=== PATIENT | male | born 1950 | race Caucasian/White ===

== ENCOUNTER 2019-02-19 10:45 | Emergency (ER) | payer MEDICARE ==
--- NOTE | 2019-02-19 11:16 | EDM.PDOC ---
ED HPI GENERAL MEDICAL PROBLEM - General Chief Complaint: Genitourinary Problem Stated Complaint: TROUBLE URINATING Time Seen by Provider: 02/19/19 11:11 Source of Information: Reports: Patient History Limitations: Reports: No Limitations - History of Present Illness INITIAL COMMENTS - FREE TEXT/NARRATIVE: HISTORY AND PHYSICAL: History of present illness: Patient is a 68-year-old male presents to the ED with concern of inability to urinate. Patient has a history of BPH and had a had a catheter in for the past month. He states he was concerned about having it in too long so he had it taken out yesterday at Dr. Tapia's office. He was told he needed to be seen to have it put back in if he has difficulty urinating. He called both Dr. Briones and Dr. Tapia's office this morning but was unable to be seen and was told to come to the ED. He states since he had it taken out yesterday afternoon he has only "dribble" some early this morning. He states he has the urge to urinate but is unable to and he has some lower abdominal discomfort due to needing to urinate. He denies fevers, chills, nausea, vomiting, back pain. Review of systems: As per history of present illness and below otherwise all systems reviewed and negative. Past medical history: As per history of present illness and as reviewed below otherwise noncontributory. Surgical history: As per history of present illness and as reviewed below otherwise noncontributory. Social history: No reported history of drug or alcohol abuse. Family history: As per history of present illness and as reviewed below otherwise noncontributory. Physical exam: General: Patient sitting comfortably in no acute distress and nontoxic appearing HEENT: Atraumatic, normocephalic, pupils reactive, negative for conjunctival pallor or scleral icterus, mucous membranes moist, throat clear, neck supple, nontender, trachea midline. No meningeal signs. Lungs: Clear to auscultation, breath sounds equal bilaterally, chest nontender. Heart: S1S2, regular, negative for clicks, rubs, or overt murmur. Abdomen: Soft, nondistended, nontender. Negative for masses or hepatosplenomegaly. Negative for costovertebral tenderness. No rigidity, rebound , guarding. Pelvis: Stable nontender. Genitourinary: Glans penis is slightly swollen and erythematous. Rectal: Deferred. Extremities: Atraumatic, negative for cords or calf pain. Neurovascular unremarkable. Neuro: Awake, alert, oriented. Cranial nerves II through XII unremarkable. Cerebellum unremarkable. Motor and sensory unremarkable throughout. Exam nonfocal. Notes: Bishop catheter placed by nursing staff. Nurse asked me to evaluate the penis secondary to irritation. Patient's glans penis appears slightly swollen and erythematous. He states it has been like this for some time and his PCP had told him to use bactroban which he has not been using. He states he does not bathe regularly and uses alcohol swabs to clean around the catheter. Patient was advised to discontinue alcohol swabs and to gently clean with warm wet washcloth and apply bactroban as instructed. Diagnostics: UA Declined labs Therapeutics: Bishop catheter Prescriptions: Impression: Urinary retention, history of BPH, UTI Definitive disposition and diagnosis as appropriate pending reevaluation and review of above. bladder Pain Score (Numeric/FACES): 10 - Related Data Allergies Allergy/AdvReac Type Severity Reaction Status Date / Time No Known Allergies Allergy Verified 02/19/19 10:58 Home Meds: Home Meds Codeine Sulfate 30 mg PO QID 02/19/19 [History] Diazepam [Valium] 5 mg PO DAILY 02/19/19 [History] Sulfamethoxazole/Trimethoprim [Bactrim Ds Tablet] 1 each PO BID 7 Days #14 tablet 02/19/19 [Rx] Tamsulosin HCl [Flomax] 1 tab DAILY 02/19/19 [History] Past Medical History Gastrointestinal History: Reports: Inflammatory Bowel Disease Genitourinary History: Reports: BPH, Retention, Urinary Psychiatric History: Reports: Anxiety Hematologic History: Reports: B12 Deficiency - Past Surgical History HEENT Surgical History: Reports: Cataract Surgery, Tonsillectomy GI Surgical History: Reports: Colonoscopy, Small Bowel, Other (See Below) Other GI Surgeries/Procedures: Crohns Disease Social & Family History - Family History Family Medical History: Noncontributory - Tobacco Use Smoking Status *Q: Never Smoker - Recreational Drug Use Recreational Drug Use: No ED ROS GENERAL - Review of Systems Review Of Systems: Comprehensive ROS is negative, except as noted in HPI. ED EXAM, RENAL/ - Physical Exam Exam: See Below (see dictation) Course - Vital Signs Last Recorded V/S: Last Vital Signs Temp 96.5 F 02/19/19 10:55 Pulse 127 H 02/19/19 10:55 Resp 20 02/19/19 10:55 BP 161/111 H 02/19/19 10:55 Pulse Ox 100 02/19/19 10:55 - Orders/Labs/Meds Orders: Active Orders 24 hr Category Date Time Status Bishop Catheter Insertion [Insert Urinary Catheter] [OM. Care 02/19/19 12:00 Ordered PC] Q24H Urinary Catheter Assessment [RC] ASDIRECTED Care 02/19/19 11:52 Active CULTURE URINE [RM] Stat Lab 02/19/19 11:15 Received Labs: Laboratory Tests 02/19/19 Range/Units 11:15 Urine Color YELLOW Urine Appearance CLOUDY Urine pH 6.5 (5.0-8.0) Ur Specific Dale 1.020 (1.001-1.035) Urine Protein 30 H (NEGATIVE) mg/dL Urine Glucose (UA) NEGATIVE (NEGATIVE) mg/dL Urine Ketones NEGATIVE (NEGATIVE) mg/dL Urine Occult Blood LARGE H (NEGATIVE) Urine Nitrite NEGATIVE (NEGATIVE) Urine Bilirubin NEGATIVE (NEGATIVE) Urine Urobilinogen 0.2 (<2.0) EU/dL Ur Leukocyte Esterase LARGE H (NEGATIVE) Urine RBC 15-20 (0-2/HPF) Urine WBC TO NUMEROUS TO COUNT H (0-5/HPF) Ur Epithelial Cells NOT SEEN (NONE-FEW) Urine Bacteria 2+ H (NEGATIVE) Departure - Departure Time of Disposition: 11:56 Disposition: Home, Self-Care 01 Condition: Good Clinical Impression: Urinary retention, History of BPH, UTI (urinary tract infection) - Discharge Information Prescriptions: Sulfamethoxazole/Trimethoprim [Bactrim Ds Tablet] 1 each PO BID 7 Days #14 tablet Referrals: Saurabh Tapia MD [Primary Care Provider] - Forms: ED Department Discharge Additional Instructions: The following information is given to patients seen in the emergency department who are being discharged to home. This information is to outline your options for follow-up care. We provide all patients seen in our emergency department with a follow-up referral. The need for follow-up, as well as the timing and circumstances, are variable depending upon the specifics of your emergency department visit. If you don't have a primary care physician on staff, we will provide you with a referral. We always advise you to contact your personal physician following an emergency department visit to inform them of the circumstance of the visit and for follow-up with them and/or the need for any referrals to a consulting specialist. The emergency department will also refer you to a specialist when appropriate. This referral assures that you have the opportunity for follow-up care with a specialist. All of these measure are taken in an effort to provide you with optimal care, which includes your follow-up. Under all circumstances we always encourage you to contact your private physician who remains a resource for coordinating your care. When calling for follow-up care, please make the office aware that this follow-up is from your recent emergency room visit. If for any reason you are refused follow-up, please contact the Emergency Department at and asked to speak to the emergency department charge nurse. Primary [facility] [address] [place] [address] [place] [address] Drink plenty of fluids and take antibiotic as directed. Follow up with primary care provider Return to ED as needed as discussed Sepsis Event Note - Evaluation Sepsis Screening Result: No Definite Risk - Focused Exam Vital Signs: Vital Signs Temp Pulse Resp BP Pulse Ox 02/19/19 10:55 96.5 F 127 H 20 161/111 H 100 Date Exam was Performed: 02/19/19 Time Exam was Performed: 11:56 - My Orders Last 24 Hours: My Active Orders 02/19/19 11:15 CULTURE URINE [RM] Stat 02/19/19 11:52 Urinary Catheter Assessment [RC] ASDIRECTED 02/19/19 12:00 Bishop Catheter Insertion [Insert Urinary Catheter] [OM.PC] Q24H - Assessment/Plan Last 24 Hours: My Active Orders 02/19/19 11:15 CULTURE URINE [RM] Stat 02/19/19 11:52 Urinary Catheter Assessment [RC] ASDIRECTED 02/19/19 12:00 Bishop Catheter Insertion [Insert Urinary Catheter] [OM.PC] Q24H
== END 2019-02-19 12:22 | disposition home or self-care (01) ==
LOC: MW.ED 10:45
DX: N39.0 Urinary tract infection, site not specified (principal); N40.1 Benign prostatic hyperplasia with lower urinary tract symptoms; R33.8 Other retention of urine; F41.9 Anxiety disorder, unspecified; Z79.899 Other long term (current) drug therapy
CPT/HCPCS: 51702; 81001; 87086; 87088; 87186; 99283-25

== ENCOUNTER 2019-03-23 15:18 | Emergency (ER) | payer MEDICARE ==
--- NOTE | 2019-03-23 16:36 | EDM.PDOC ---
ED HPI GENERAL MEDICAL PROBLEM - General Chief Complaint: Genitourinary Problem Stated Complaint: NEEDS CATHETER CHANGED Time Seen by Provider: 03/23/19 16:36 Source of Information: Reports: Patient History Limitations: Reports: No Limitations - History of Present Illness INITIAL COMMENTS - FREE TEXT/NARRATIVE: HISTORY AND PHYSICAL: History of present illness: Patient is a 68-year-old male presents the ED with concern for need of a new catheter. Patient has history of BPH causing obstruction requiring an indwelling catheter. He states that he is supposed to have his catheter changed once a month per his urologist. He states he is due for to be changed today. He has no complaints at this time and denies any trouble with urination , fevers, chills, nausea, vomiting, abdominal pain. Review of systems: As per history of present illness and below otherwise all systems reviewed and negative. Past medical history: As per history of present illness and as reviewed below otherwise noncontributory. Surgical history: As per history of present illness and as reviewed below otherwise noncontributory. Social history: No reported history of drug or alcohol abuse. Family history: As per history of present illness and as reviewed below otherwise noncontributory. Physical exam: General: Patient sitting comfortably in no acute distress and nontoxic appearing HEENT: Atraumatic, normocephalic, pupils reactive, negative for conjunctival pallor or scleral icterus, mucous membranes moist, throat clear, neck supple, nontender, trachea midline. No meningeal signs. Lungs: Clear to auscultation, breath sounds equal bilaterally, chest nontender. Heart: S1S2, regular, negative for clicks, rubs, or overt murmur. Abdomen: Soft, nondistended, nontender. Negative for masses or hepatosplenomegaly. Negative for costovertebral tenderness. No rigidity, rebound , guarding. Pelvis: Stable nontender. Genitourinary: Deferred. Rectal: Deferred. Extremities: Atraumatic, negative for cords or calf pain. Neurovascular unremarkable. Neuro: Awake, alert, oriented. Cranial nerves II through XII unremarkable. Cerebellum unremarkable. Motor and sensory unremarkable throughout. Exam nonfocal. Notes: Catheter changed by nursing staff Diagnostics: None Therapeutics: None Prescriptions: Impression: Need for indwelling catheter Plan: Follow-up with urology Return to ED as needed discussed Definitive disposition and diagnosis as appropriate pending reevaluation and review of above. - Related Data Allergies Allergy/AdvReac Type Severity Reaction Status Date / Time No Known Allergies Allergy Verified 02/19/19 10:58 Home Meds: Home Meds Codeine Sulfate 30 mg PO QID 02/19/19 [History] Diazepam [Valium] 5 mg PO DAILY 02/19/19 [History] Sulfamethoxazole/Trimethoprim [Bactrim Ds Tablet] 1 each PO BID 7 Days #14 tablet 02/19/19 [Rx] Tamsulosin HCl [Flomax] 1 tab DAILY 02/19/19 [History] Past Medical History Gastrointestinal History: Reports: Inflammatory Bowel Disease Genitourinary History: Reports: BPH, Prostate Disorder, Retention, Urinary Psychiatric History: Reports: Anxiety Hematologic History: Reports: B12 Deficiency - Infectious Disease History Infectious Disease History: Reports: Chicken Pox - Past Surgical History HEENT Surgical History: Reports: Cataract Surgery, Tonsillectomy GI Surgical History: Reports: Colonoscopy, Small Bowel, Other (See Below) Other GI Surgeries/Procedures: Crohns Disease Social & Family History - Family History Family Medical History: Noncontributory - Tobacco Use Smoking Status *Q: Never Smoker - Recreational Drug Use Recreational Drug Use: No ED ROS GENERAL - Review of Systems Review Of Systems: Comprehensive ROS is negative, except as noted in HPI. ED EXAM, RENAL/ - Physical Exam Exam: See Below (see dictation) Course - Vital Signs Last Recorded V/S: Last Vital Signs Temp Pulse 110 H 03/23/19 16:13 Resp 20 03/23/19 16:13 BP 157/81 H 03/23/19 16:13 Pulse Ox 98 03/23/19 16:13 Departure - Departure Time of Disposition: 17:17 Disposition: Home, Self-Care 01 Condition: Good Clinical Impression: Indwelling catheter replaced - Discharge Information Referrals: Saurabh Tapia MD [Primary Care Provider] - Forms: ED Department Discharge Additional Instructions: The following information is given to patients seen in the emergency department who are being discharged to home. This information is to outline your options for follow-up care. We provide all patients seen in our emergency department with a follow-up referral. The need for follow-up, as well as the timing and circumstances, are variable depending upon the specifics of your emergency department visit. If you don't have a primary care physician on staff, we will provide you with a referral. We always advise you to contact your personal physician following an emergency department visit to inform them of the circumstance of the visit and for follow-up with them and/or the need for any referrals to a consulting specialist. The emergency department will also refer you to a specialist when appropriate. This referral assures that you have the opportunity for follow-up care with a specialist. All of these measure are taken in an effort to provide you with optimal care, which includes your follow-up. Under all circumstances we always encourage you to contact your private physician who remains a resource for coordinating your care. When calling for follow-up care, please make the office aware that this follow-up is from your recent emergency room visit. If for any reason you are refused follow-up, please contact the [facility] Emergency Department at and asked to speak to the emergency department charge nurse. [facility] Primary [facility] [address] [place] [id number] [id number] Follow up with urology Return to ED as needed as discussed Sepsis Event Note - Evaluation Sepsis Screening Result: No Definite Risk - Focused Exam Vital Signs: Vital Signs Pulse Resp BP Pulse Ox 03/23/19 16:13 110 H 20 157/81 H 98 Date Exam was Performed: 03/23/19 Time Exam was Performed: 17:15
== END 2019-03-23 17:41 | disposition home or self-care (01) ==
LOC: MW.ED 15:18
DX: Z46.6 Encounter for fitting and adjustment of urinary device (principal); F41.9 Anxiety disorder, unspecified; N40.1 Benign prostatic hyperplasia with lower urinary tract symptoms; R33.8 Other retention of urine; Z79.899 Other long term (current) drug therapy
CPT/HCPCS: 51702; 99283

== ENCOUNTER 2021-01-03 15:02 | Inpatient (IN) | payer MEDICARE ==
[2021-01-03] MEDS ORDERED: Sodium Chloride 0.9% 2.5 ML Syringe FLUSH PRN (15:18)
[2021-01-03] MEDS ORDERED: Sodium Chloride 0.9% 10 ML Syringe FLUSH PRN (15:18)
[2021-01-03] MEDS ORDERED: Piperacillin/Tazobactam 4.5 GM in Sodium Chloride 0.9% 100 ML IV ONE (15:22)
[2021-01-03] MEDS ORDERED: Pantoprazole 80 MG in Sodium Chloride 0.9% 20 ML IVPUSH ONE (15:23)
--- NOTE | 2021-01-03 15:32 | EDM.PDOC ---
ED HPI GENERAL MEDICAL PROBLEM - General Chief Complaint: General Stated Complaint: WEAKNESS Time Seen by Provider: 01/03/21 15:06 Source of Information: Reports: Patient - History of Present Illness INITIAL COMMENTS - FREE TEXT/NARRATIVE: Patient sent over the primary care doctor's office because he was found to be anemic with a high white count. The patient states has been sick for about 2 weeks in duration on and off with intermittent abdominal discomfort. Patient states no diarrhea. There is some dark brown-black stool. Patient has a history of Crohn's. No high fevers. No exacerbating or alleviating factors. Abdominal pain is since resolved. Patient denies respiratory symptoms. Patient has no additional complaints at this time. No additional infectious complaints - Related Data Allergies Allergy/AdvReac Type Severity Reaction Status Date / Time No Known Allergies Allergy Verified 01/03/21 15:13 Home Meds: Home Meds Codeine Sulfate 30 mg PO QID 02/19/19 [History] Sulfamethoxazole/Trimethoprim [Bactrim Ds Tablet] 1 each PO BID 7 Days #14 tablet 02/19/19 [Rx] Tamsulosin HCl [Flomax] 1 tab DAILY 02/19/19 [History] diazePAM [Valium] 5 mg PO DAILY 02/19/19 [History] Past Medical History Gastrointestinal History: Reports: Inflammatory Bowel Disease Genitourinary History: Reports: BPH, Prostate Disorder, Retention, Urinary Psychiatric History: Reports: Anxiety Hematologic History: Reports: B12 Deficiency - Infectious Disease History Infectious Disease History: Reports: Chicken Pox - Past Surgical History HEENT Surgical History: Reports: Cataract Surgery, Tonsillectomy GI Surgical History: Reports: Colonoscopy, Small Bowel, Other (See Below) Other GI Surgeries/Procedures: Crohns Disease Social & Family History - Family History Family Medical History: No Pertinent Family History - Tobacco Use Second Hand Smoke Exposure: No - Caffeine Use Caffeine Use: Reports: None - Recreational Drug Use Recreational Drug Use: No ED ROS GENERAL - Review of Systems Review Of Systems: Comprehensive ROS is negative, except as noted in HPI. ED EXAM, GENERAL - Physical Exam Exam: See Below Free Text/Narrative:: CONSTITUTIONAL: fair appearing, mild distress SKIN: Warm, dry, and intact without rash HENT: Normocephalic, atraumatic, PULMONARY: clear to ausculation bilaterally. No rales, rhonchi, wheezing CARDIOVASCULAR: regular rate, No murmur, rubs, or gallops GASTROINTESTINAL: soft, nondistended, nontender. Stool is dark brown-to black component strongly guaiac positive NEUROLOGIC: normal speech, II-XII intact. light touch/5/5 power equal and symmetric in upper and lower extremities without deficit MUSCULOSKELETAL: no gross deformities, atraumatic PSYCHIATRIC: normal mood and affect #1 Interpretation EKG Date: 12/13/20 EKG Interpretation Comments: 107, sinus tachycardia, nonspecific ST/T findings Course - Vital Signs Text/Narrative:: Differential diagnosis: GI bleed, hematologic malignancy, sepsis, other Patient presents to the emergency department as outlined above. Patient has evidence of a gastric carcinoma and has strongly guaiac positive stools. The patient was never hypotensive in the ED. Patient may very well have a slow bleed. Patient also has a history of Crohn's but there is no evidence of active Crohn's infection at least on CT scan the patient's abdomen is soft and completely benign. Patient does have a white count of 30. No defintive atypical cells to indicate underlying hematologic malignancy although this could be considered again down the road. Patient did have some initial tachycardia and lactic acid elevation. Patient was given a total of 30 cc/kg of fluid given fluid resuscitation, blood products and antibiotics. The urine dip was pending at the time of disposition with the patient did have large leukocyte esterase in his urine and had an enlarged prostate with bilateral hydronephrosis. A Bishop catheter was placed with a large amount of urine that was taken out. Patient was covered with empiric antibiotics. I spoke to Dr. 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 His recommendation was for transfer to a tertiary care center that could care for this complex patient. Unfortunately there are no beds available in the state and out of state. Multiple facilities were contacted multiple times over the course of the patient's ED stay. At the time of this dictation, I am aware that there is still no beds in the state area and [facility]. As such discussion with the hospitalist the patient will be admitted here for stabilization, blood transfusion, antibiotics and continued treatment and management until which time a bed can become available. 8:16pm. Patient continues to be hemodynamically stable 116/58 with a heart rate of 102. [facility] and [facility] and [facility] was called and on the [facility] was called and [facility] was called and none of these facilities have bed availability. [facility] actually never picked up. Critical care: I spent 45 minutes of critical care time with this patient not including reportable procedures. There was an acute impairment of an organ system with a high probability of imminent or life threatening deterioration in the patient`s condition. Interventions and changes required in the course of therapy are located in the chart. Time involved was spent in direct patient care, reviewing ancillary data, old records, consulting with decision makers, EMS, other doctors, giving orders and documenting. Last Recorded V/S: Last Vital Signs Temp 36.6 C 01/04/21 07:37 Pulse 84 01/04/21 07:37 Resp 14 01/04/21 07:37 BP 119/48 L 01/04/21 07:37 Pulse Ox 95 01/04/21 07:37 - Orders/Labs/Meds Orders: Active Orders 24 hr Category Date Time Status Cardiac Monitoring [RC] Q8H Care 01/03/21 15:18 Active Bishop Catheter Insertion [Insert Urinary Catheter] [OM. Care 01/03/21 17:30 Ordered PC] Q24H Pulse Oximetry [RC] ASDIRECTED Care 01/03/21 15:18 Active Urinary Catheter Assessment [RC] ASDIRECTED Care 01/03/21 17:20 Active Verify Patient Consent Obtain [RC] ASDIRECTED Care 01/03/21 15:24 Active CORONAVIRUS COVID-19 BERENICE [MOLEC] Stat Lab 01/03/21 15:25 Ordered CULTURE BLOOD [BC] Stat Lab 01/03/21 15:45 Results CULTURE BLOOD [BC] Stat Lab 01/03/21 15:51 Results CULTURE URINE [MREF] Stat Lab 01/03/21 17:45 Received RED BLOOD CELLS LP [BBK] Stat Lab 01/03/21 15:45 Results TYPE AND SCREEN [BBK] Stat Lab 01/03/21 15:45 Results UA W/MICROSCOPIC [URIN] Stat Lab 01/03/21 17:45 Results Sodium Chloride 0.9% [Saline Flush] Med 01/03/21 15:18 Active 10 ml FLUSH ASDIRECTED PRN Sodium Chloride 0.9% [Saline Flush] Med 01/03/21 15:18 Active 2.5 ml FLUSH ASDIRECTED PRN Blood Culture x2 Reflex Set [OM.PC] Stat Ot 01/03/21 15:22 Ordered Saline Lock Insert [OM.PC] Stat Ot 01/03/21 15:18 Ordered Transfuse Red Blood Cells [COMM] Stat Ot 01/03/21 15:24 Ordered Medication Orders Acetaminophen (Acetaminophen 325 Mg Tab) 650 mg PO Q4H PRN PRN Reason: Pain (Mild 1-3)/fever Albuterol/Ipratropium (Albuterol/Ipratropium 3.0-0.5 Mg/3 Ml Neb Soln) 3 ml NEB Q4HRRT PRN PRN Reason: Shortness Of Breath/wheezing Diazepam (Diazepam 5 Mg Tab) 5 mg PO DAILY [facility] Last Admin: 01/04/21 01:29 Dose: 5 mg Documented by: CECILE Piperacillin Sod/Tazobactam (Sod 3.375 gm/ Sodium Chloride) 50 mls @ 100 mls/hr IV Q8H [facility] Last Admin: 01/04/21 06:34 Dose: 100 mls/hr Documented by: Infusion: 01/04/21 00:33 Dose: 100 mls/hr Documented by: Admin: 01/04/21 00:03 Dose: 100 mls/hr Documented by: CECILE Pantoprazole Sodium 40 mg/ (Sodium Chloride) 10 mls @ 300 mls/hr IV BID [facility] Ondansetron HCl (Ondansetron 4 Mg/2 Ml Sdv) 4 mg IVPUSH Q4H PRN PRN Reason: Nausea/Vomiting Sodium Chloride (Sodium Chloride 0.9% 10 Ml Syringe) 10 ml FLUSH ASDIRECTED PRN PRN Reason: Keep Vein Open Last Admin: 01/03/21 16:48 Dose: 10 ml Documented by: FAUZIA Sodium Chloride (Sodium Chloride 0.9% 2.5 Ml Syringe) 2.5 ml FLUSH ASDIRECTED PRN PRN Reason: Keep Vein Open Last Admin: 01/03/21 16:48 Dose: 2.5 ml Documented by: FAUZIA Tamsulosin HCl (Tamsulosin 0.4 Mg Cap.Er) 0.4 mg PO DAILY [facility] Labs: Laboratory Tests 01/03/21 01/03/21 01/03/21 Range/Units 15:15 15:45 15:45 INR 1.09 APTT (18.6-31.3) SEC Lactic Acid 4.0 H* (0.4-2.0) mmol/L Troponin I < 0.050 (0.000-0.056) ng/mL Urine Color Urine Appearance Urine pH (5.0-8.0) Ur Specific [place] (1.001-1.035) Urine Protein (NEGATIVE) mg/dL Urine Glucose (UA) (NEGATIVE) mg/dL Urine Ketones (NEGATIVE) mg/dL Urine Occult Blood (NEGATIVE) Urine Nitrite (NEGATIVE) Urine Bilirubin (NEGATIVE) Urine Urobilinogen (<2.0) EU/dL Ur Leukocyte Esterase (NEGATIVE) Blood Type Antibody Screen Crossmatch 01/03/21 01/03/21 01/03/21 Range/Units 15:45 15:45 17:45 INR APTT 19.7 (18.6-31.3) SEC Lactic Acid (0.4-2.0) mmol/L Troponin I (0.000-0.056) ng/mL Urine Color YELLOW Urine Appearance SLT CLOUDY Urine pH 6.5 (5.0-8.0) Ur Specific [place] 1.015 (1.001-1.035) Urine Protein NEGATIVE (NEGATIVE) mg/dL Urine Glucose (UA) NEGATIVE (NEGATIVE) mg/dL Urine Ketones NEGATIVE (NEGATIVE) mg/dL Urine Occult Blood NEGATIVE (NEGATIVE) Urine Nitrite NEGATIVE (NEGATIVE) Urine Bilirubin NEGATIVE (NEGATIVE) Urine Urobilinogen 0.2 (<2.0) EU/dL Ur Leukocyte Esterase LARGE H (NEGATIVE) Blood Type O POSITIVE Antibody Screen NEGATIVE Crossmatch See Detail Meds: Medications Generic Name Dose Route Start Last Admin Trade Name Freq PRN Reason Stop Dose Admin Acetaminophen 650 mg 01/03/21 23:05 Acetaminophen 325 Mg Tab PO Q4H PRN Pain (Mild 1-3)/fever Albuterol/Ipratropium 3 ml 01/03/21 23:05 Albuterol/Ipratropium 3.0-0.5 Mg/3 Ml Neb Soln NEB Q4HRRT PRN Shortness Of Breath/wheezing Diazepam 5 mg 01/04/21 01:20 01/04/21 01:29 Diazepam 5 Mg Tab PO 5 mg DAILY AIMEE Administration Piperacillin Sod/Tazobactam 50 mls @ 100 mls/hr 01/03/21 23:00 01/04/21 06:34 Sod 3.375 gm/ Sodium Chloride IV 100 mls/hr Q8H AIMEE Administration Pantoprazole Sodium 40 mg/ 10 mls @ 300 mls/hr 01/04/21 09:00 Sodium Chloride IV BID [facility] Ondansetron HCl 4 mg 01/03/21 23:05 Ondansetron 4 Mg/2 Ml Sdv IVPUSH Q4H PRN Nausea/Vomiting Sodium Chloride 10 ml 01/03/21 15:18 01/03/21 16:48 Sodium Chloride 0.9% 10 Ml Syringe FLUSH 10 ml ASDIRECTED PRN Administration Keep Vein Open Sodium Chloride 2.5 ml 01/03/21 15:18 01/03/21 16:48 Sodium Chloride 0.9% 2.5 Ml Syringe FLUSH 2.5 ml ASDIRECTED PRN Administration Keep Vein Open Tamsulosin HCl 0.4 mg 01/04/21 09:00 Tamsulosin 0.4 Mg Cap.Er PO DAILY AIMEE Discontinued Medications Generic Name Dose Route Start Last Admin Trade Name Freq PRN Reason Stop Dose Admin Furosemide 10 mg 01/03/21 23:10 01/04/21 00:03 Furosemide 20 Mg/2 Ml Vial IVPUSH 01/03/21 23:11 10 mg NOW ONE Administration Piperacillin Sod/Tazobactam 100 mls @ 100 mls/hr 01/03/21 15:22 01/03/21 16:47 Sod 4.5 gm/ Sodium Chloride IV 01/03/21 16:21 100 mls/hr ONETIME ONE Administration Pantoprazole Sodium 80 mg/ 20 mls @ 420 mls/hr 01/03/21 15:23 01/03/21 16:45 Sodium Chloride IVPUSH 01/03/21 15:25 420 mls/hr ONETIME ONE Administration Lactated Ringer's 1,000 mls @ 999 mls/hr 01/03/21 17:18 01/03/21 18:05 Ringers, Lactated IV 01/03/21 18:18 999 mls/hr .BOLUS ONE Administration Lactated Ringer's 500 mls @ 1,000 mls/hr 01/03/21 17:18 01/03/21 18:05 Ringers, Lactated IV 01/03/21 17:47 1,000 mls/hr .BOLUS ONE Administration Iron Dextran 100 mg/ Sodium 252 mls @ 42 mls/hr 01/03/21 23:12 01/04/21 00:10 Chloride IV 01/04/21 05:11 42 mls/hr ONETIME ONE Administration Departure - Departure Time of Disposition: 20:30 Disposition: Admitted As Inpatient 67 Condition: Serious Clinical Impression: Anemia, GI bleed, Sepsis, DAMON (acute kidney injury), BPH NOS w ur obs/LUTS - Discharge Information Sepsis Event Note (ED) - Evaluation Sepsis Screening Result: No Definite Risk - My Orders Last 24 Hours: My Active Orders 01/03/21 15:18 Cardiac Monitoring [RC] Q8H Pulse Oximetry [RC] ASDIRECTED Sodium Chloride 0.9% [Saline Flush] 10 ml FLUSH ASDIRECTED PRN Sodium Chloride 0.9% [Saline Flush] 2.5 ml FLUSH ASDIRECTED PRN Saline Lock Insert [OM.PC] Stat 01/03/21 15:22 Blood Culture x2 Reflex Set [OM.PC] Stat 01/03/21 15:24 Verify Patient Consent Obtain [RC] ASDIRECTED Transfuse Red Blood Cells [COMM] Stat 01/03/21 15:25 CORONAVIRUS COVID-19 BERENICE [MOLEC] Stat 01/03/21 15:45 CULTURE BLOOD [BC] Stat RED BLOOD CELLS LP [BBK] Stat TYPE AND SCREEN [BBK] Stat 01/03/21 15:51 CULTURE BLOOD [BC] Stat 01/03/21 17:20 Urinary Catheter Assessment [RC] ASDIRECTED 01/03/21 17:30 Bishop Catheter Insertion [Insert Urinary Catheter] [OM.PC] Q24H 01/03/21 17:45 CULTURE URINE [MREF] Stat UA W/MICROSCOPIC [URIN] Stat - Assessment/Plan Last 24 Hours: My Active Orders 01/03/21 15:18 Cardiac Monitoring [RC] Q8H Pulse Oximetry [RC] ASDIRECTED Sodium Chloride 0.9% [Saline Flush] 10 ml FLUSH ASDIRECTED PRN Sodium Chloride 0.9% [Saline Flush] 2.5 ml FLUSH ASDIRECTED PRN Saline Lock Insert [OM.PC] Stat 01/03/21 15:22 Blood Culture x2 Reflex Set [OM.PC] Stat 01/03/21 15:24 Verify Patient Consent Obtain [RC] ASDIRECTED Transfuse Red Blood Cells [COMM] Stat 01/03/21 15:25 CORONAVIRUS COVID-19 BERENICE [MOLEC] Stat 01/03/21 15:45 CULTURE BLOOD [BC] Stat RED BLOOD CELLS LP [BBK] Stat TYPE AND SCREEN [BBK] Stat 01/03/21 15:51 CULTURE BLOOD [BC] Stat 01/03/21 17:20 Urinary Catheter Assessment [RC] ASDIRECTED 01/03/21 17:30 Bishop Catheter Insertion [Insert Urinary Catheter] [OM.PC] Q24H 01/03/21 17:45 CULTURE URINE [MREF] Stat UA W/MICROSCOPIC [URIN] Stat
--- NOTE | 2021-01-03 16:10 | CR ---
INDICATION: Chest pain. COMPARISON: None. FINDINGS/IMPRESSION: Semi upright portable AP chest radiograph. Evaluation is mildly limited by lordotic positioning. Lungs appear clear of infiltrate. Mild elevation of the right diaphragm is present. No definite pleural effusions. Cardiac contour is within normal limits, allowing for technique. Included bones are unremarkable. Dictated by Laureano Mojica MD @ 01/03/2021 4:06:23 PM Dictated by: Laureano Mojica MD @ 01/03/2021 16:08:07 (Electronically Signed)
--- NOTE | 2021-01-03 17:05 | CT ---
INDICATION: Abdominal pain. White blood cell count 30 K. TECHNIQUE: Volumetric helical scanning of the abdomen and pelvis was performed without contrast material. Coronal and sagittal reconstructions were obtained. COMPARISON: None FINDINGS: There is marked circumferential wall thickening of the gastric antrum, highly suspicious for a carcinoma. The bowel is otherwise unremarkable except for a large amount of stool throughout the colon. The liver is normal in size and shape and contains a number of cysts. Stones are noted in the gallbladder. The spleen is mildly enlarged and contains a 2.5 cm cyst as well as a number of benign-appearing calcifications. There is marked hydronephrosis and hydroureter bilaterally. The bladder is distended. Several bladder diverticula are noted. The prostate is mildly enlarged. No lymphadenopathy or free fluid is evident. A 7 cm mass is demonstrated in the right lung base. This is incompletely demonstrated. The heart size is normal. A small pericardial effusion is noted. IMPRESSION: 1. Marked circumferential wall thickening of the gastric antrum, highly suspicious for carcinoma. 2. Incompletely demonstrated sub cm right lung base mass. 3. Bladder outlet obstruction bladder distension as well as marked hydroureter and hydronephrosis bilaterally. Prostate mildly enlarged. 4. Mildly enlarged spleen and 2.5 cm splenic cyst. 5. Small pericardial effusion. 6. Cholelithiasis. 7. Constipation. Please note that all CT scans at this facility use dose modulation, iterative reconstruction, and/or weight-based dosing when appropriate to reduce radiation dose to as low as reasonably achievable. Dictated by Alexis Latif MD @ 01/03/2021 5:04:25 PM (Electronically Signed)
[2021-01-03] MEDS ORDERED: Lactated Ringers 1,000 ML IV ONE (17:18)
[2021-01-03] MEDS ORDERED: Lactated Ringers 500 ML IV ONE (17:18)
[2021-01-03] MEDS ORDERED: Ondansetron 4 MG/2 ML SDV IVPUSH PRN (23:05)
[2021-01-03] MEDS ORDERED: Acetaminophen 325 MG Tab PO PRN (23:05)
[2021-01-03] MEDS ORDERED: Albuterol/Ipratropium 3.0-0.5 MG/3 ML Neb Soln NEB PRN (23:05)
[2021-01-03] MEDS ORDERED: Furosemide 20 MG/2 ML VIAL IVPUSH ONE (23:10)
[2021-01-03] MEDS ORDERED: Iron Dextran Complex 100 MG in Sodium Chloride 0.9% 250 ML IV ONE (23:12)
--- NOTE | 2021-01-03 23:14 | PCM.HP.2 ---
H&P History of Present Illness - General Date of Service: 01/04/21 Admit Problem/Dx: Admission Diagnosis/Problem Admission Diagnosis/Problem Anemia - History of Present Illness Initial Comments - Free Text/Narative: Patient is a 70-year-old male with past medical history of dilated cardiomyopathy, Crohn's disease, CKD, prostatomegaly status post embolization who was sent in from his PCPs office due to generalized fatigue as well as intermittent abdominal discomfort for the past 2 weeks. The lab work done at located within [facility] primary care doctor's office showed significant anemia with critically low hemoglobin hemoglobin of 3.7 as well as elevated WBC count. Patient states no diarrhea. There is some dark brown-black stool although he states he takes iron tablets at home. Patient has a history of Crohn's. No high fevers. No exacerbating or alleviating factors. Abdominal pain is since resolved. Patient denies respiratory symptoms. Patient has no additional complaints at this time. No additional infectious complaints. Patient was sent to the ER due to critical labs. In the ER CT of abdomen was done which showed a marked circumferential wall thickening of the gastric antrum highly suspicious for carcinoma. The bladder was also distended with several bladder diverticula noted, prostate was mildly enlarged, there was a 7 cm mass in the right lung base that was incompletely demonstrated. Patient received IV antibiotics and blood transfusion was started in the ER. Surgery was consulted due to the mass and initially transferred was recommended. Due to nonavailability of the breath beds throughout the [facility] the patient was admitted to the hospital for optimization of his anemia. - Related Data Allergies/Adverse Reactions: Allergies Allergy/AdvReac Type Severity Reaction Status Date / Time No Known Allergies Allergy Verified 01/03/21 15:13 Home Medications: Home Meds Codeine Sulfate 30 mg PO QID 02/19/19 [History] Sulfamethoxazole/Trimethoprim [Bactrim Ds Tablet] 1 each PO BID 7 Days #14 tablet 02/19/19 [Rx] Tamsulosin HCl [Flomax] 1 tab DAILY 02/19/19 [History] diazePAM [Valium] 5 mg PO DAILY 02/19/19 [History] Past Medical History Gastrointestinal History: Reports: Inflammatory Bowel Disease Genitourinary History: Reports: BPH, Prostate Disorder, Retention, Urinary Psychiatric History: Reports: Anxiety Hematologic History: Reports: B12 Deficiency - Infectious Disease History Infectious Disease History: Reports: Chicken Pox - Past Surgical History HEENT Surgical History: Reports: Cataract Surgery, Tonsillectomy GI Surgical History: Reports: Colonoscopy, Small Bowel, Other (See Below) Other GI Surgeries/Procedures: Crohns Disease Social & Family History - Family History Family Medical History: No Pertinent Family History - Tobacco Use Second Hand Smoke Exposure: No - Caffeine Use Caffeine Use: Reports: None - Recreational Drug Use Recreational Drug Use: No H&P Review of Systems - Review of Systems: Review Of Systems: See Below General: Reports: Malaise, Weakness, Fatigue. Denies: Fever, Chills Pulmonary: Reports: Shortness of Breath. Denies: Wheezing, Pleuritic Chest Pain, Cough Cardiovascular: Reports: Dyspnea on Exertion. Denies: Chest Pain, Palpitations Gastrointestinal: Reports: Black Stool, Decreased Appetite. Denies: Abdominal Pain, Anorexia, Bloody Stool, Constipation, Diarrhea, Nausea, Vomiting Genitourinary: Denies: Dysuria, Frequency, Burning Musculoskeletal: Denies: Neck Pain, Shoulder Pain, Arm Pain Skin: Denies: Cyanosis, Jaundice, Mottled Psychiatric: Denies: Confusion, Depression, Mood Lability, Anxiety Neurological: Denies: Confusion, Dizziness, Headache, Numbness Exam - Exam Exam: See Below - Vital Signs Vital Signs: Last Vital Signs Temp 36.1 C 01/03/21 15:10 Pulse 97 01/03/21 20:16 Resp 18 01/03/21 20:16 BP 126/56 L 01/03/21 20:16 Pulse Ox 98 01/03/21 20:16 Weight: 72.575 kg - Exam Quality Assessment: Supplemental Oxygen General: Alert, Oriented Neck: Supple Lungs: Clear to Auscultation, Normal Respiratory Effort Cardiovascular: Regular Rate, Regular Rhythm GI/Abdominal Exam: Normal Bowel Sounds, Soft, Non-Tender - Patient Data Lab Results Last 24 hrs: Laboratory Results - last 24 hr 01/03/21 01/03/21 01/03/21 Range/Units 15:15 15:45 15:45 INR 1.09 APTT (18.6-31.3) SEC Lactic Acid 4.0 H* (0.4-2.0) mmol/L Troponin I < 0.050 (0.000-0.056) ng/mL Urine Color Urine Appearance Urine pH (5.0-8.0) Ur Specific [place] (1.001-1.035) Urine Protein (NEGATIVE) mg/dL Urine Glucose (UA) (NEGATIVE) mg/dL Urine Ketones (NEGATIVE) mg/dL Urine Occult Blood (NEGATIVE) Urine Nitrite (NEGATIVE) Urine Bilirubin (NEGATIVE) Urine Urobilinogen (<2.0) EU/dL Ur Leukocyte Esterase (NEGATIVE) Blood Type Antibody Screen Crossmatch 01/03/21 01/03/21 01/03/21 Range/Units 15:45 15:45 17:45 INR APTT 19.7 (18.6-31.3) SEC Lactic Acid (0.4-2.0) mmol/L Troponin I (0.000-0.056) ng/mL Urine Color YELLOW Urine Appearance SLT CLOUDY Urine pH 6.5 (5.0-8.0) Ur Specific [place] 1.015 (1.001-1.035) Urine Protein NEGATIVE (NEGATIVE) mg/dL Urine Glucose (UA) NEGATIVE (NEGATIVE) mg/dL Urine Ketones NEGATIVE (NEGATIVE) mg/dL Urine Occult Blood NEGATIVE (NEGATIVE) Urine Nitrite NEGATIVE (NEGATIVE) Urine Bilirubin NEGATIVE (NEGATIVE) Urine Urobilinogen 0.2 (<2.0) EU/dL Ur Leukocyte Esterase LARGE H (NEGATIVE) Blood Type O POSITIVE Antibody Screen NEGATIVE Crossmatch See Detail 01/03/21 Range/Units 21:10 INR APTT (18.6-31.3) SEC Lactic Acid 1.0 (0.4-2.0) mmol/L Troponin I (0.000-0.056) ng/mL Urine Color Urine Appearance Urine pH (5.0-8.0) Ur Specific [place] (1.001-1.035) Urine Protein (NEGATIVE) mg/dL Urine Glucose (UA) (NEGATIVE) mg/dL Urine Ketones (NEGATIVE) mg/dL Urine Occult Blood (NEGATIVE) Urine Nitrite (NEGATIVE) Urine Bilirubin (NEGATIVE) Urine Urobilinogen (<2.0) EU/dL Ur Leukocyte Esterase (NEGATIVE) Blood Type Antibody Screen Crossmatch Result Diagrams: 01/04/21 05:43 01/04/21 05:43 Valentín Results Last 24 hrs: Microbiology 01/03/21 15:51 Anaerobic Blood Culture - Final Blood - Venous - Lab Draw 01/03/21 15:45 Anaerobic Blood Culture - Final Blood - Venous Sepsis Event Note - Evaluation Sepsis Screening Result: No Definite Risk - Focused Exam Vital Signs: Vital Signs Temp Pulse Resp BP Pulse Ox 01/03/21 20:16 97 18 126/56 L 98 01/03/21 15:10 36.1 C 114 H 20 125/53 L 100 - Problem List (1) Gastric mass SNOMED Code(s): 108987421 ICD Code: K31.89 - OTHER DISEASES OF STOMACH AND DUODENUM Status: Acute Current Visit: Yes (2) Anemia SNOMED Code(s): 717545427 ICD Code: D64.9 - ANEMIA, UNSPECIFIED Status: Acute Priority: High Current Visit: Yes Qualifiers: Anemia type: iron deficiency Iron deficiency anemia type: chronic blood loss Qualified Code(s): D50.0 - Iron deficiency anemia secondary to blood loss (chronic) (3) GI bleed SNOMED Code(s): 01314996 ICD Code: K92.2 - GASTROINTESTINAL HEMORRHAGE, UNSPECIFIED Status: Acute Priority: High Current Visit: Yes Qualifiers: GI bleed type/associated pathology: unspecified gastrointestinal hemorrhage type Qualified Code(s): K92.2 - Gastrointestinal hemorrhage, unspecified (4) Sepsis SNOMED Code(s): 77307947 ICD Code: A41.9 - SEPSIS, UNSPECIFIED ORGANISM Status: Acute Priority: Medium Current Visit: Yes Qualifiers: Sepsis acute organ dysfunction status: without acute organ dysfunction (5) History of BPH SNOMED Code(s): 963144412 ICD Code: Z87.438 - PERSONAL HISTORY OF OTHER DISEASES OF MALE GENITAL ORGANS Status: Acute Current Visit: No (6) Indwelling catheter replaced SNOMED Code(s): 244195501 ICD Code: Z46.6 - ENCOUNTER FOR FITTING AND ADJUSTMENT OF URINARY DEVICE Status: Acute Priority: Low Current Visit: No (7) Urinary retention SNOMED Code(s): 965971425 ICD Code: R33.9 - RETENTION OF URINE, UNSPECIFIED Status: Acute Current Visit: No (8) Mass of right lung SNOMED Code(s): 467251489 ICD Code: R91.8 - OTHER NONSPECIFIC ABNORMAL FINDING OF LUNG FIELD Status: Acute Priority: High Current Visit: Yes Problem List Initiated/Reviewed/Updated: Yes Orders Last 24hrs: Active Orders 24 hr Category Date Time Status Admission Status [Patient Status] [ADT] Stat ADT 01/03/21 20:31 Active Accu Check [Blood Glucose Check, Bedside] [RC] Q6H Care 01/03/21 23:08 Ordered Ambulate [RC] ASDIRECTED Care 01/03/21 23:05 Ordered Antiembolic Devices [RC] PER UNIT ROUTINE Care 01/03/21 23:07 Ordered Cardiac Monitoring [RC] . DIRECTED Care 01/03/21 15:18 Active Cardiac Monitoring [RC] . DIRECTED Care 01/03/21 20:31 Active Bishop Catheter Insertion [Insert Urinary Catheter] [OM. Care 01/03/21 17:30 Ordered PC] Q24H Oxygen Therapy [RC] PRN Care 01/03/21 23:05 Ordered Pulse Oximetry [RC] ASDIRECTED Care 01/03/21 15:18 Active RT Aerosol Therapy [RC] ASDIRECTED Care 01/03/21 23:08 Ordered Urinary Catheter Assessment [RC] ASDIRECTED Care 01/03/21 17:20 Active VTE/DVT Education [RC] PER UNIT ROUTINE Care 01/03/21 23:05 Ordered Verify Patient Consent Obtain [RC] ASDIRECTED Care 01/03/21 15:24 Active Vital Signs [RC] Q4H Care 01/03/21 23:05 Ordered Nothing per Oral After Midnight Diet [DIET] Diet 01/03/21 Dinner Ordered BMP [BASIC METABOLIC PANEL,BMP] [CHEM] AM Lab 01/04/21 05:11 Ordered CBC WITH AUTO DIFF [HEME] AM Lab 01/04/21 05:11 Ordered CORONAVIRUS COVID-19 BERENICE [MOLEC] Stat Lab 01/03/21 15:25 Ordered CULTURE BLOOD [BC] Stat Lab 01/03/21 15:45 Results CULTURE BLOOD [BC] Stat Lab 01/03/21 15:51 Results CULTURE URINE [MREF] Stat Lab 01/03/21 17:45 Received HEMOGLOBIN/HEMATOCRIT,HH [HEME] Routine Lab 01/04/21 00:00 Ordered MAGNESIUM [CHEM] AM Lab 01/04/21 05:11 Ordered PHOSPHORUS [CHEM] AM Lab 01/04/21 05:11 Ordered RED BLOOD CELLS LP [BBK] Stat Lab 01/03/21 15:45 Results TYPE AND SCREEN [BBK] Stat Lab 01/03/21 15:45 Results UA W/MICROSCOPIC [URIN] Stat Lab 01/03/21 17:45 Results Acetaminophen [TylenoL] Med 01/03/21 23:05 Ordered 650 mg PO Q4H PRN Albuterol/Ipratropium [DuoNeb 3.0-0.5 MG/3 ML] Med 01/03/21 23:05 Ordered 3 ml NEB Q4HRRT PRN Furosemide [Lasix] Med 01/03/21 23:10 Once 10 mg IVPUSH NOW ONE Iron Dextran Complex [Dexferrum] 100 mg Med 01/03/21 23:12 Ordered Sodium Chloride 0.9% [Normal Saline] 250 ml IV ONETIME Ondansetron [Zofran] Med 01/03/21 23:05 Ordered 4 mg IVPUSH Q4H PRN Pantoprazole [ProTONIX IV] Med 01/04/21 09:00 Ordered 40 mg IV BID Sodium Chloride 0.9% [Saline Flush] Med 01/03/21 15:18 Active 10 ml FLUSH ASDIRECTED PRN Sodium Chloride 0.9% [Saline Flush] Med 01/03/21 15:18 Active 2.5 ml FLUSH ASDIRECTED PRN Blood Culture x2 Reflex Set [OM.PC] Stat Oth 01/03/21 15:22 Ordered Saline Lock Insert [OM.PC] Stat Oth 01/03/21 15:18 Ordered Sequential Compression Device [OM.PC] Per Unit Routine Oth 01/03/21 23:06 Ordered Transfuse Red Blood Cells [COMM] Stat Oth 01/03/21 15:24 Ordered Resuscitation Status Routine Resus Stat 01/03/21 23:05 Ordered Medication Orders Acetaminophen (Acetaminophen 325 Mg Tab) 650 mg PO Q4H PRN PRN Reason: Pain (Mild 1-3)/fever Albuterol/Ipratropium (Albuterol/Ipratropium 3.0-0.5 Mg/3 Ml Neb Soln) 3 ml NEB Q4HRRT PRN PRN Reason: Shortness Of Breath/wheezing Furosemide (Furosemide 40 Mg/4 Ml Vial) 10 mg IVPUSH NOW ONE Stop: 01/03/21 23:11 Iron Dextran 100 mg/ Sodium (Chloride) 252 mls @ 42 mls/hr IV ONETIME ONE Stop: 01/04/21 05:11 Ondansetron HCl (Ondansetron 4 Mg/2 Ml Sdv) 4 mg IVPUSH Q4H PRN PRN Reason: Nausea/Vomiting Pantoprazole Sodium (Pantoprazole 40 Mg Vial) 40 mg IV BID AIMEE Sodium Chloride (Sodium Chloride 0.9% 10 Ml Syringe) 10 ml FLUSH ASDIRECTED PRN PRN Reason: Keep Vein Open Last Admin: 01/03/21 16:48 Dose: 10 ml Documented by: FAUZIA Sodium Chloride (Sodium Chloride 0.9% 2.5 Ml Syringe) 2.5 ml FLUSH ASDIRECTED PRN PRN Reason: Keep Vein Open Last Admin: 01/03/21 16:48 Dose: 2.5 ml Documented by: FAUZIA Assessment/Plan Comment:: 70-year-old male admitted for severe anemia as well as leukocytosis Patient received 2 units of PRBC in ER is currently receiving total unit Follow-up on posttransfusion hemoglobin most likely will require another 2 to 3 units of blood Start broad-spectrum IV antibiotics due to significant leukocytosis Patient had urinary retention and showed hydronephrosis likely secondary to chronic bladder obstruction although prostate looks mildly enlarged, Bishop is in place, patient had stopped taking his Flomax, will resume Flomax Patient is very anxious about his catheter and wanted to be taken out as soon as possible Patient's Hemoccult was strongly positive in the ER we will start patient on IV PPI twice daily Surgery has been consulted by ER for possible EGD We will continue to monitor closely, patient will need to be optimized prior to any procedure
[2021-01-04] MEDS: Piperacillin/Tazobactam 3.375 GM in Sodium Chloride 0.9% 50 ML IV SCH ×4 (00:03→22:37)
[2021-01-04] MEDS: Diazepam 5 MG Tab PO SCH ×2 (01:29→09:09)
[2021-01-04 06:39] LABS: CARBON DIOXIDE,CO2 22.9 mmol/L (21.0-32.0); POTASSIUM,K 3.9 mmol/L (3.5-5.1)
[2021-01-04] MEDS ORDERED: Pantoprazole 40 MG Vial IV SCH (09:00)
[2021-01-04] MEDS: Tamsulosin 0.4 MG Cap.ER PO SCH (09:08)
[2021-01-04] MEDS: Pantoprazole 40 MG in Sodium Chloride 0.9% 10 ML IV SCH ×2 (09:09→20:03)
--- NOTE | 2021-01-04 12:09 | PCM.CONS ---
H&P History of Present Illness - General Date of Service: 01/04/21 Admit Problem/Dx: Admission Diagnosis/Problem Admission Diagnosis/Problem Anemia Source of Information: Patient History Limitations: Reports: No Limitations - History of Present Illness Initial Comments - Free Text/Narative: Patient is a 70-year-old gentleman who was admitted to the hospital last night with profound anemia with a hemoglobin between 3 and 4 g. He had markedly positive Hemoccult positive stool. He also had a urinary tract infection. A CT scan of the abdomen does reveal pronounced gastric wall thickening worrisome for developing malignancy. Additionally, he has a large right lower lobe mass. He does have a history of Crohn's disease and has had at least 3 or 4 limited small bowel resections for that. He currently is not on long-term corticosteroids. Onset of Symptoms: Reports: Gradual Duration of Symptoms: Reports: Week(s):, Getting Worse Location: Reports: Abdomen Quality: Reports: Pressure Severity: Severe Improves with: Reports: None Worsens with: Reports: None Associated Symptoms: Reports: Weakness - Related Data Allergies/Adverse Reactions: Allergies Allergy/AdvReac Type Severity Reaction Status Date / Time No Known Allergies Allergy Verified 01/03/21 15:13 Home Medications: Home Meds Codeine Sulfate 30 mg PO QID 02/19/19 [History] Sulfamethoxazole/Trimethoprim [Bactrim Ds Tablet] 1 each PO BID 7 Days #14 tablet 02/19/19 [Rx] Tamsulosin HCl [Flomax] 1 tab DAILY 02/19/19 [History] diazePAM [Valium] 5 mg PO DAILY 02/19/19 [History] Past Medical History Gastrointestinal History: Reports: Inflammatory Bowel Disease Genitourinary History: Reports: BPH, Prostate Disorder, Retention, Urinary Psychiatric History: Reports: Anxiety Hematologic History: Reports: B12 Deficiency - Infectious Disease History Infectious Disease History: Reports: Chicken Pox - Past Surgical History HEENT Surgical History: Reports: Cataract Surgery, Tonsillectomy GI Surgical History: Reports: Colonoscopy, EGD, Small Bowel, Other (See Below) Other GI Surgeries/Procedures: Crohns Disease Social & Family History - Family History Family Medical History: No Pertinent Family History - Tobacco Use Tobacco Use Comment: Unable to assess, patient sleepy Second Hand Smoke Exposure: No - Caffeine Use Caffeine Use: Reports: None Caffeine Use Comment: Unable to assess, patient sleepy - Recreational Drug Use Recreational Drug Use: No H&P Review of Systems - Review of Systems: Review Of Systems: See Below General: Reports: Weakness, Fatigue, Weight Loss (20-25 pounds.). Denies: Fever, Chills, Malaise HEENT: Reports: No Symptoms Pulmonary: Denies: Shortness of Breath, Wheezing Cardiovascular: Denies: Chest Pain, Palpitations Gastrointestinal: Reports: Abdominal Pain, Black Stool, Decreased Appetite, Flatus, Melena. Denies: Anorexia, Constipation, Diarrhea, Distension, Hematemesis Genitourinary: Reports: Dysuria. Denies: Frequency, Burning, Pain, Urgency Musculoskeletal: Reports: No Symptoms Skin: Denies: Cyanosis, Jaundice, Mottled Psychiatric: Denies: Confusion, Depression, Anxiety Neurological: Reports: No Symptoms Hematologic/Lymphatic: Reports: Anemia Immunologic: Reports: No Symptoms Exam - Exam Exam: See Below - Vital Signs Vital Signs: Last Vital Signs Temp 97.8 F 01/04/21 11:38 Pulse 81 01/04/21 11:38 Resp 16 01/04/21 11:38 BP 112/50 L 01/04/21 11:38 Pulse Ox 99 01/04/21 11:38 Weight: 151 lb 0.266 oz - Exam Quality Assessment: Supplemental Oxygen, Urinary Catheter, DVT Prophylaxis. No: Central Line/PICC General: Alert, Oriented, Cooperative, Mild Distress HEENT: Conjunctiva Clear (Ilsa), Pupils Equal. No: Scleral Icterus Neck: Supple, Trachea Midline Lungs: Clear to Auscultation, Normal Respiratory Effort Cardiovascular: Regular Rate, Regular Rhythm, Normal S1, Normal S2 GI/Abdominal Exam: Normal Bowel Sounds, Soft, Non-Tender, No Distention, No Mass. No: Guarding, Rigid, Rebound (Male) Exam: No Hernia, Normal Inspection Rectal (Males) Exam: Heme + Stool Back Exam: Normal Inspection Extremities: Normal Inspection, Normal Range of Motion Peripheral Pulses: 3+: Posterior Tibial (L), Posterior Tibial (R), Dorsalis Pedis (L), Dorsalis Pedis (R) Skin: Warm, Dry, Intact Psychiatric: Alert, Normal Affect, Normal Mood - Patient Data Lab Results Last 24 hrs: Laboratory Results - last 24 hr 01/03/21 01/03/21 01/03/21 Range/Units 15:15 15:45 15:45 WBC (4.0-11.0) K/uL RBC (4.50-5.90) M/uL Hgb (13.0-17.0) g/dL Hct (38.0-50.0) % MCV (80.0-98.0) fL MCH (27.0-32.0) pg MCHC (31.0-37.0) g/dL RDW Std Deviation (28.0-62.0) fl RDW Coeff of Camryn (11.0-15.0) % Plt Count (150-400) K/uL MPV (7.40-12.00) fL Neut % (Auto) (48.0-80.0) % Lymph % (Auto) (16.0-40.0) % [place] % (Auto) (0.0-15.0) % Eos % (Auto) (0.0-7.0) % Baso % (Auto) (0.0-1.5) % Neut # (Auto) (1.4-5.7) K/uL Lymph # (Auto) (0.6-2.4) K/uL [place] # (Auto) (0.0-0.8) K/uL Eos # (Auto) (0.0-0.7) K/uL Baso # (Auto) (0.0-0.1) K/uL Nucleated RBC % /100WBC Nucleated RBCs # K/uL INR 1.09 APTT (18.6-31.3) SEC Sodium (136-148) mmol/L Potassium (3.5-5.1) mmol/L Chloride (98-107) mmol/L Carbon Dioxide (21.0-32.0) mmol/L BUN (7.0-18.0) mg/dL Creatinine (0.8-1.3) mg/dL Est Cr Clr Drug Dosing mL/min Estimated GFR (MDRD) ml/min Glucose (74-106) mg/dL POC Glucose (70-99) mg/dL Lactic Acid 4.0 H* (0.4-2.0) mmol/L Calcium (8.5-10.1) mg/dL Phosphorus (2.6-4.7) mg/dL Magnesium (1.8-2.4) mg/dL Troponin I < 0.050 (0.000-0.056) ng/mL Urine Color Urine Appearance Urine pH (5.0-8.0) Ur Specific [place] (1.001-1.035) Urine Protein (NEGATIVE) mg/dL Urine Glucose (UA) (NEGATIVE) mg/dL Urine Ketones (NEGATIVE) mg/dL Urine Occult Blood (NEGATIVE) Urine Nitrite (NEGATIVE) Urine Bilirubin (NEGATIVE) Urine Urobilinogen (<2.0) EU/dL Ur Leukocyte Esterase (NEGATIVE) Blood Type Antibody Screen Crossmatch 01/03/21 01/03/21 01/03/21 Range/Units 15:45 15:45 17:45 WBC (4.0-11.0) K/uL RBC (4.50-5.90) M/uL Hgb (13.0-17.0) g/dL Hct (38.0-50.0) % MCV (80.0-98.0) fL MCH (27.0-32.0) pg MCHC (31.0-37.0) g/dL RDW Std Deviation (28.0-62.0) fl RDW Coeff of Camryn (11.0-15.0) % Plt Count (150-400) K/uL MPV (7.40-12.00) fL Neut % (Auto) (48.0-80.0) % Lymph % (Auto) (16.0-40.0) % [place] % (Auto) (0.0-15.0) % Eos % (Auto) (0.0-7.0) % Baso % (Auto) (0.0-1.5) % Neut # (Auto) (1.4-5.7) K/uL Lymph # (Auto) (0.6-2.4) K/uL [place] # (Auto) (0.0-0.8) K/uL Eos # (Auto) (0.0-0.7) K/uL Baso # (Auto) (0.0-0.1) K/uL Nucleated RBC % /100WBC Nucleated RBCs # K/uL INR APTT 19.7 (18.6-31.3) SEC Sodium (136-148) mmol/L Potassium (3.5-5.1) mmol/L Chloride (98-107) mmol/L Carbon Dioxide (21.0-32.0) mmol/L BUN (7.0-18.0) mg/dL Creatinine (0.8-1.3) mg/dL Est Cr Clr Drug Dosing mL/min Estimated GFR (MDRD) ml/min Glucose (74-106) mg/dL POC Glucose (70-99) mg/dL Lactic Acid (0.4-2.0) mmol/L Calcium (8.5-10.1) mg/dL Phosphorus (2.6-4.7) mg/dL Magnesium (1.8-2.4) mg/dL Troponin I (0.000-0.056) ng/mL Urine Color YELLOW Urine Appearance SLT CLOUDY Urine pH 6.5 (5.0-8.0) Ur Specific [place] 1.015 (1.001-1.035) Urine Protein NEGATIVE (NEGATIVE) mg/dL Urine Glucose (UA) NEGATIVE (NEGATIVE) mg/dL Urine Ketones NEGATIVE (NEGATIVE) mg/dL Urine Occult Blood NEGATIVE (NEGATIVE) Urine Nitrite NEGATIVE (NEGATIVE) Urine Bilirubin NEGATIVE (NEGATIVE) Urine Urobilinogen 0.2 (<2.0) EU/dL Ur Leukocyte Esterase LARGE H (NEGATIVE) Blood Type O POSITIVE Antibody Screen NEGATIVE Crossmatch See Detail 01/03/21 01/04/21 01/04/21 Range/Units 21:10 01:00 05:43 WBC 16.80 H (4.0-11.0) K/uL RBC 2.35 L (4.50-5.90) M/uL Hgb 6.5 L (13.0-17.0) g/dL Hct 19.6 L (38.0-50.0) % MCV 83.4 (80.0-98.0) fL MCH 27.7 (27.0-32.0) pg MCHC 33.2 (31.0-37.0) g/dL RDW Std Deviation 46.0 (28.0-62.0) fl RDW Coeff of Camryn 16 H (11.0-15.0) % Plt Count 431 H (150-400) K/uL MPV 8.30 (7.40-12.00) fL Neut % (Auto) 78.2 (48.0-80.0) % Lymph % (Auto) 10.0 L (16.0-40.0) % [place] % (Auto) 9.9 (0.0-15.0) % Eos % (Auto) 1.8 (0.0-7.0) % Baso % (Auto) 0.1 (0.0-1.5) % Neut # (Auto) 13.1 H (1.4-5.7) K/uL Lymph # (Auto) 1.7 (0.6-2.4) K/uL [place] # (Auto) 1.7 H (0.0-0.8) K/uL Eos # (Auto) 0.3 (0.0-0.7) K/uL Baso # (Auto) 0.0 (0.0-0.1) K/uL Nucleated RBC % 0.0 /100WBC Nucleated RBCs # 0 K/uL INR APTT (18.6-31.3) SEC Sodium (136-148) mmol/L Potassium (3.5-5.1) mmol/L Chloride (98-107) mmol/L Carbon Dioxide (21.0-32.0) mmol/L BUN (7.0-18.0) mg/dL Creatinine (0.8-1.3) mg/dL Est Cr Clr Drug Dosing mL/min Estimated GFR (MDRD) ml/min Glucose (74-106) mg/dL POC Glucose 139 H (70-99) mg/dL Lactic Acid 1.0 (0.4-2.0) mmol/L Calcium (8.5-10.1) mg/dL Phosphorus (2.6-4.7) mg/dL Magnesium (1.8-2.4) mg/dL Troponin I (0.000-0.056) ng/mL Urine Color Urine Appearance Urine pH (5.0-8.0) Ur Specific [place] (1.001-1.035) Urine Protein (NEGATIVE) mg/dL Urine Glucose (UA) (NEGATIVE) mg/dL Urine Ketones (NEGATIVE) mg/dL Urine Occult Blood (NEGATIVE) Urine Nitrite (NEGATIVE) Urine Bilirubin (NEGATIVE) Urine Urobilinogen (<2.0) EU/dL Ur Leukocyte Esterase (NEGATIVE) Blood Type Antibody Screen Crossmatch 01/04/21 01/04/21 01/04/21 Range/Units 05:43 08:24 11:35 WBC (4.0-11.0) K/uL RBC (4.50-5.90) M/uL Hgb (13.0-17.0) g/dL Hct (38.0-50.0) % MCV (80.0-98.0) fL MCH (27.0-32.0) pg MCHC (31.0-37.0) g/dL RDW Std Deviation (28.0-62.0) fl RDW Coeff of Camryn (11.0-15.0) % Plt Count (150-400) K/uL MPV (7.40-12.00) fL Neut % (Auto) (48.0-80.0) % Lymph % (Auto) (16.0-40.0) % [place] % (Auto) (0.0-15.0) % Eos % (Auto) (0.0-7.0) % Baso % (Auto) (0.0-1.5) % Neut # (Auto) (1.4-5.7) K/uL Lymph # (Auto) (0.6-2.4) K/uL [place] # (Auto) (0.0-0.8) K/uL Eos # (Auto) (0.0-0.7) K/uL Baso # (Auto) (0.0-0.1) K/uL Nucleated RBC % /100WBC Nucleated RBCs # K/uL INR APTT (18.6-31.3) SEC Sodium 139 (136-148) mmol/L Potassium 3.9 (3.5-5.1) mmol/L Chloride 106 (98-107) mmol/L Carbon Dioxide 22.9 (21.0-32.0) mmol/L BUN 42 H (7.0-18.0) mg/dL Creatinine 1.8 H (0.8-1.3) mg/dL Est Cr Clr Drug Dosing 37.53 mL/min Estimated GFR (MDRD) 37.6 ml/min Glucose 147 H (74-106) mg/dL POC Glucose 122 H 96 (70-99) mg/dL Lactic Acid (0.4-2.0) mmol/L Calcium 7.5 L (8.5-10.1) mg/dL Phosphorus 5.0 H (2.6-4.7) mg/dL Magnesium 1.8 (1.8-2.4) mg/dL Troponin I (0.000-0.056) ng/mL Urine Color Urine Appearance Urine pH (5.0-8.0) Ur Specific [place] (1.001-1.035) Urine Protein (NEGATIVE) mg/dL Urine Glucose (UA) (NEGATIVE) mg/dL Urine Ketones (NEGATIVE) mg/dL Urine Occult Blood (NEGATIVE) Urine Nitrite (NEGATIVE) Urine Bilirubin (NEGATIVE) Urine Urobilinogen (<2.0) EU/dL Ur Leukocyte Esterase (NEGATIVE) Blood Type Antibody Screen Crossmatch Result Diagrams: 01/04/21 05:43 01/04/21 05:43 Valentín Results Last 24 hrs: Microbiology 01/03/21 15:51 Anaerobic Blood Culture - Final Blood - Venous - Lab Draw 01/03/21 15:45 Anaerobic Blood Culture - Final Blood - Venous Sepsis Event Note - Evaluation Sepsis Screening Result: No Definite Risk - Focused Exam Vital Signs: Vital Signs Temp Temp Pulse Resp BP Pulse Ox 01/04/21 11:38 97.8 F 81 16 112/50 L 99 01/04/21 10:35 98.3 F 81 20 116/59 L 01/04/21 10:21 98.2 F 01/04/21 10:20 98.2 F 83 16 113/59 L 01/04/21 07:37 98 F 84 14 119/48 L 95 01/04/21 04:20 98.2 F 83 16 113/57 L 01/04/21 01:58 98.5 F 89 14 121/58 L 01/04/21 01:43 98.4 F 91 16 126/54 L Consult PN Assessment/Plan Procedures: Procedures ASSAY OF CREATININE (02/14/19) ASSAY OF FERRITIN (12/16/18) ASSAY OF FOLIC ACID SERUM (12/16/18) ASSAY OF NATRIURETIC PEPTIDE (04/18/19) ASSAY OF PARATHORMONE (02/18/19) ASSAY OF PHOSPHORUS (02/18/19) ASSAY OF PROTEIN URINE (02/18/19) ASSAY OF PSA TOTAL (01/16/19) ASSAY OF UREA NITROGEN (02/14/19) ASSAY OF URINE CREATININE (02/18/19) COMPLETE CBC AUTOMATED (02/18/19) COMPLETE CBC W/AUTO DIFF WBC (12/16/18) COMPREHEN METABOLIC PANEL (04/18/19) EMERGENCY DEPT VISIT (03/23/19) INSERT TEMP BLADDER CATH (03/23/19) IRON BINDING TEST (02/18/19) MICROBE SUSCEPTIBLE VALENTÍN (02/19/19) OFFICE O/P EST LOW 20-29 MIN (02/18/19) OFFICE O/P EST SF 10-19 MIN (02/14/19) OFFICE O/P NEW MOD 45-59 MIN (04/18/19) ROUTINE VENIPUNCTURE (04/18/19) THER/PROPH/DIAG IV INF INIT (12/19/18) TTE W/DOPPLER COMPLETE (01/13/19) URINALYSIS AUTO W/SCOPE (02/19/19) URINE BACTERIA CULTURE (02/19/19) URINE CULTURE/COLONY COUNT (02/19/19) US EXAM ABDO BACK [place] (01/13/19) US TRANSRECTAL (01/22/19) VITAMIN B-12 (12/16/18) (1) Mass of right lung SNOMED Code(s): 013011777 Code(s): R91.8 - OTHER NONSPECIFIC ABNORMAL FINDING OF LUNG FIELD Priority: High Current Visit: Yes (2) Anemia SNOMED Code(s): 060183737 Code(s): D64.9 - ANEMIA, UNSPECIFIED Priority: High Current Visit: Yes Qualifiers: Anemia type: iron deficiency Iron deficiency anemia type: chronic blood loss Qualified Code(s): D50.0 - Iron deficiency anemia secondary to blood loss (chronic) (3) GI bleed SNOMED Code(s): 73394091 Code(s): K92.2 - GASTROINTESTINAL HEMORRHAGE, UNSPECIFIED Priority: High Current Visit: Yes Qualifiers: GI bleed type/associated pathology: unspecified gastrointestinal hemorrhage type Qualified Code(s): K92.2 - Gastrointestinal hemorrhage, unspecified (4) Sepsis SNOMED Code(s): 50267602 Code(s): A41.9 - SEPSIS, UNSPECIFIED ORGANISM Priority: Medium Current Visit: Yes Qualifiers: Sepsis acute organ dysfunction status: without acute organ dysfunction (5) Indwelling catheter replaced SNOMED Code(s): 080444046 Code(s): Z46.6 - ENCOUNTER FOR FITTING AND ADJUSTMENT OF URINARY DEVICE Priority: Low Current Visit: No Problem List Initiated/Reviewed/Updated: Yes Plan: I would like to see the patient. transfused to a hemoglobin between 8 and 9 g. I plan to perform esophagogastroduodenoscopy with biopsy on 01/05. Esophagogastroduodenoscopy with biopsy. The operative procedure, along with the risks, including, but not limited to, bleeding, perforation, and the need for surgery were discussed with the patient who voices understanding, offers no questions and wishes to proceed.
--- NOTE | 2021-01-04 16:43 | PCM.PN ---
- General Info Date of Service: 01/04/21 Admission Dx/Problem (Free Text): Admission Diagnosis/Problem Admission Diagnosis/Problem Anemia Subjective Update: Patient seen and examined at bedside, is at bedside as well, family updated, patient is receiving his fourth unit of blood, tolerated transfusion pretty well Functional Status: Reports: Ambulating, Urinating - Review of Systems General: Reports: Weakness, Fatigue, Malaise Pulmonary: Denies: Shortness of Breath, Pleuritic Chest Pain Cardiovascular: Denies: Chest Pain, Palpitations Gastrointestinal: Reports: Decreased Appetite. Denies: Abdominal Pain, Constipation Genitourinary: Denies: Dysuria, Frequency, Burning Musculoskeletal: Denies: Neck Pain, Shoulder Pain, Arm Pain Skin: Denies: Cyanosis, Jaundice, Mottled, Bruising, Pruritis Neurological: Denies: Dizziness, Headache, Numbness, Paresthesia - Patient Data Vitals - Most Recent: Last Vital Signs Temp 36.4 C 01/04/21 13:44 Pulse 82 01/04/21 13:44 Resp 16 01/04/21 13:44 BP 127/61 01/04/21 13:44 Pulse Ox 97 01/04/21 13:44 Weight - Most Recent: 68.5 kg I&O - Last 24 Hours: Intake & Output 01/04/21 01/04/21 01/04/21 06:59 14:59 22:59 Intake Total 341 350 Output Total 1300 Balance -959 350 Lab Results Last 24 Hours: Laboratory Results - last 24 hr 01/03/21 01/03/21 01/03/21 Range/Units 15:45 15:45 17:45 WBC (4.0-11.0) K/uL RBC (4.50-5.90) M/uL Hgb (13.0-17.0) g/dL Hct (38.0-50.0) % MCV (80.0-98.0) fL MCH (27.0-32.0) pg MCHC (31.0-37.0) g/dL RDW Std Deviation (28.0-62.0) fl RDW Coeff of Camryn (11.0-15.0) % Plt Count (150-400) K/uL MPV (7.40-12.00) fL Neut % (Auto) (48.0-80.0) % Lymph % (Auto) (16.0-40.0) % [place] % (Auto) (0.0-15.0) % Eos % (Auto) (0.0-7.0) % Baso % (Auto) (0.0-1.5) % Neut # (Auto) (1.4-5.7) K/uL Lymph # (Auto) (0.6-2.4) K/uL [place] # (Auto) (0.0-0.8) K/uL Eos # (Auto) (0.0-0.7) K/uL Baso # (Auto) (0.0-0.1) K/uL Nucleated RBC % /100WBC Nucleated RBCs # K/uL Sodium (136-148) mmol/L Potassium (3.5-5.1) mmol/L Chloride (98-107) mmol/L Carbon Dioxide (21.0-32.0) mmol/L BUN (7.0-18.0) mg/dL Creatinine (0.8-1.3) mg/dL Est Cr Clr Drug Dosing mL/min Estimated GFR (MDRD) ml/min Glucose (74-106) mg/dL POC Glucose (70-99) mg/dL Lactic Acid 4.0 H* (0.4-2.0) mmol/L Calcium (8.5-10.1) mg/dL Phosphorus (2.6-4.7) mg/dL Magnesium (1.8-2.4) mg/dL Urine Color YELLOW Urine Appearance SLT CLOUDY Urine pH 6.5 (5.0-8.0) Ur Specific [place] 1.015 (1.001-1.035) Urine Protein NEGATIVE (NEGATIVE) mg/dL Urine Glucose (UA) NEGATIVE (NEGATIVE) mg/dL Urine Ketones NEGATIVE (NEGATIVE) mg/dL Urine Occult Blood NEGATIVE (NEGATIVE) Urine Nitrite NEGATIVE (NEGATIVE) Urine Bilirubin NEGATIVE (NEGATIVE) Urine Urobilinogen 0.2 (<2.0) EU/dL Ur Leukocyte Esterase LARGE H (NEGATIVE) Urine RBC 0-2 (0-2/HPF) Urine WBC 0-3 (0-5/HPF) Ur Epithelial Cells RARE (NONE-FEW) Urine Bacteria FEW (NEGATIVE) Blood Type O POSITIVE Antibody Screen NEGATIVE Crossmatch See Detail 01/03/21 01/04/21 01/04/21 Range/Units 21:10 01:00 05:43 WBC 16.80 H (4.0-11.0) K/uL RBC 2.35 L (4.50-5.90) M/uL Hgb 6.5 L (13.0-17.0) g/dL Hct 19.6 L (38.0-50.0) % MCV 83.4 (80.0-98.0) fL MCH 27.7 (27.0-32.0) pg MCHC 33.2 (31.0-37.0) g/dL RDW Std Deviation 46.0 (28.0-62.0) fl RDW Coeff of Camryn 16 H (11.0-15.0) % Plt Count 431 H (150-400) K/uL MPV 8.30 (7.40-12.00) fL Neut % (Auto) 78.2 (48.0-80.0) % Lymph % (Auto) 10.0 L (16.0-40.0) % [place] % (Auto) 9.9 (0.0-15.0) % Eos % (Auto) 1.8 (0.0-7.0) % Baso % (Auto) 0.1 (0.0-1.5) % Neut # (Auto) 13.1 H (1.4-5.7) K/uL Lymph # (Auto) 1.7 (0.6-2.4) K/uL [place] # (Auto) 1.7 H (0.0-0.8) K/uL Eos # (Auto) 0.3 (0.0-0.7) K/uL Baso # (Auto) 0.0 (0.0-0.1) K/uL Nucleated RBC % 0.0 /100WBC Nucleated RBCs # 0 K/uL Sodium (136-148) mmol/L Potassium (3.5-5.1) mmol/L Chloride (98-107) mmol/L Carbon Dioxide (21.0-32.0) mmol/L BUN (7.0-18.0) mg/dL Creatinine (0.8-1.3) mg/dL Est Cr Clr Drug Dosing mL/min Estimated GFR (MDRD) ml/min Glucose (74-106) mg/dL POC Glucose 139 H (70-99) mg/dL Lactic Acid 1.0 (0.4-2.0) mmol/L Calcium (8.5-10.1) mg/dL Phosphorus (2.6-4.7) mg/dL Magnesium (1.8-2.4) mg/dL Urine Color Urine Appearance Urine pH (5.0-8.0) Ur Specific [place] (1.001-1.035) Urine Protein (NEGATIVE) mg/dL Urine Glucose (UA) (NEGATIVE) mg/dL Urine Ketones (NEGATIVE) mg/dL Urine Occult Blood (NEGATIVE) Urine Nitrite (NEGATIVE) Urine Bilirubin (NEGATIVE) Urine Urobilinogen (<2.0) EU/dL Ur Leukocyte Esterase (NEGATIVE) Urine RBC (0-2/HPF) Urine WBC (0-5/HPF) Ur Epithelial Cells (NONE-FEW) Urine Bacteria (NEGATIVE) Blood Type Antibody Screen Crossmatch 01/04/21 01/04/21 01/04/21 Range/Units 05:43 08:24 11:35 WBC (4.0-11.0) K/uL RBC (4.50-5.90) M/uL Hgb (13.0-17.0) g/dL Hct (38.0-50.0) % MCV (80.0-98.0) fL MCH (27.0-32.0) pg MCHC (31.0-37.0) g/dL RDW Std Deviation (28.0-62.0) fl RDW Coeff of Camryn (11.0-15.0) % Plt Count (150-400) K/uL MPV (7.40-12.00) fL Neut % (Auto) (48.0-80.0) % Lymph % (Auto) (16.0-40.0) % [place] % (Auto) (0.0-15.0) % Eos % (Auto) (0.0-7.0) % Baso % (Auto) (0.0-1.5) % Neut # (Auto) (1.4-5.7) K/uL Lymph # (Auto) (0.6-2.4) K/uL [place] # (Auto) (0.0-0.8) K/uL Eos # (Auto) (0.0-0.7) K/uL Baso # (Auto) (0.0-0.1) K/uL Nucleated RBC % /100WBC Nucleated RBCs # K/uL Sodium 139 (136-148) mmol/L Potassium 3.9 (3.5-5.1) mmol/L Chloride 106 (98-107) mmol/L Carbon Dioxide 22.9 (21.0-32.0) mmol/L BUN 42 H (7.0-18.0) mg/dL Creatinine 1.8 H (0.8-1.3) mg/dL Est Cr Clr Drug Dosing 37.53 mL/min Estimated GFR (MDRD) 37.6 ml/min Glucose 147 H (74-106) mg/dL POC Glucose 122 H 96 (70-99) mg/dL Lactic Acid (0.4-2.0) mmol/L Calcium 7.5 L (8.5-10.1) mg/dL Phosphorus 5.0 H (2.6-4.7) mg/dL Magnesium 1.8 (1.8-2.4) mg/dL Urine Color Urine Appearance Urine pH (5.0-8.0) Ur Specific [place] (1.001-1.035) Urine Protein (NEGATIVE) mg/dL Urine Glucose (UA) (NEGATIVE) mg/dL Urine Ketones (NEGATIVE) mg/dL Urine Occult Blood (NEGATIVE) Urine Nitrite (NEGATIVE) Urine Bilirubin (NEGATIVE) Urine Urobilinogen (<2.0) EU/dL Ur Leukocyte Esterase (NEGATIVE) Urine RBC (0-2/HPF) Urine WBC (0-5/HPF) Ur Epithelial Cells (NONE-FEW) Urine Bacteria (NEGATIVE) Blood Type Antibody Screen Crossmatch Valentín Results Last 24 Hours: Microbiology 01/03/21 15:51 Aerobic Blood Culture - Preliminary Blood - Venous - Lab Draw NO GROWTH AFTER 1 DAY Anaerobic Blood Culture - Final 01/03/21 15:45 Aerobic Blood Culture - Preliminary Blood - Venous NO GROWTH AFTER 1 DAY Anaerobic Blood Culture - Final Med Orders - Current: Current Medications Acetaminophen (Acetaminophen 325 Mg Tab) 650 mg PO Q4H PRN PRN Reason: Pain (Mild 1-3)/fever Albuterol/Ipratropium (Albuterol/Ipratropium 3.0-0.5 Mg/3 Ml Neb Soln) 3 ml NEB Q4HRRT PRN PRN Reason: Shortness Of Breath/wheezing Diazepam (Diazepam 5 Mg Tab) 5 mg PO DAILY [facility] Last Admin: 01/04/21 09:09 Dose: 5 mg Documented by: Piperacillin Sod/Tazobactam (Sod 3.375 gm/ Sodium Chloride) 50 mls @ 100 mls/hr IV Q8H [facility] Last Admin: 01/04/21 15:00 Dose: 100 mls/hr Documented by: Pantoprazole Sodium 40 mg/ (Sodium Chloride) 10 mls @ 300 mls/hr IV BID [facility] Last Admin: 01/04/21 09:09 Dose: 300 mls/hr Documented by: Ondansetron HCl (Ondansetron 4 Mg/2 Ml Sdv) 4 mg IVPUSH Q4H PRN PRN Reason: Nausea/Vomiting Sodium Chloride (Sodium Chloride 0.9% 10 Ml Syringe) 10 ml FLUSH ASDIRECTED PRN PRN Reason: Keep Vein Open Last Admin: 01/03/21 16:48 Dose: 10 ml Documented by: Sodium Chloride (Sodium Chloride 0.9% 2.5 Ml Syringe) 2.5 ml FLUSH ASDIRECTED PRN PRN Reason: Keep Vein Open Last Admin: 01/03/21 16:48 Dose: 2.5 ml Documented by: Tamsulosin HCl (Tamsulosin 0.4 Mg Cap.Er) 0.4 mg PO DAILY [facility] Last Admin: 01/04/21 09:08 Dose: 0.4 mg Documented by: Discontinued Medications Furosemide (Furosemide 20 Mg/2 Ml Vial) 10 mg IVPUSH NOW ONE Stop: 01/03/21 23:11 Last Admin: 01/04/21 00:03 Dose: 10 mg Documented by: Piperacillin Sod/Tazobactam (Sod 4.5 gm/ Sodium Chloride) 100 mls @ 100 mls/hr IV ONETIME ONE Stop: 01/03/21 16:21 Last Admin: 01/03/21 16:47 Dose: 100 mls/hr Documented by: Pantoprazole Sodium 80 mg/ (Sodium Chloride) 20 mls @ 420 mls/hr IVPUSH ONETIME ONE Stop: 01/03/21 15:25 Last Admin: 01/03/21 16:45 Dose: 420 mls/hr Documented by: Lactated Ringer's (Ringers, Lactated) 1,000 mls @ 999 mls/hr IV .BOLUS ONE Stop: 01/03/21 18:18 Last Admin: 01/03/21 18:05 Dose: 999 mls/hr Documented by: Lactated Ringer's (Ringers, Lactated) 500 mls @ 1,000 mls/hr IV .BOLUS ONE Stop: 01/03/21 17:47 Last Admin: 01/03/21 18:05 Dose: 1,000 mls/hr Documented by: Iron Dextran 100 mg/ Sodium (Chloride) 252 mls @ 42 mls/hr IV ONETIME ONE Stop: 01/04/21 05:11 Last Admin: 01/04/21 00:10 Dose: 42 mls/hr Documented by: - Exam Quality Assessment: Supplemental Oxygen Urinary Catheter Total Time: 0Days 17Hours General: Alert, Oriented Lungs: Clear to Auscultation, Normal Respiratory Effort Cardiovascular: Regular Rate, Regular Rhythm GI/Abdominal Exam: Normal Bowel Sounds, Soft, Non-Tender Extremities: Normal Inspection, Normal Range of Motion - Patient Data Lab Results Last 24 hrs: Laboratory Results - last 24 hr 01/03/21 01/03/21 01/03/21 Range/Units 15:45 15:45 17:45 WBC (4.0-11.0) K/uL RBC (4.50-5.90) M/uL Hgb (13.0-17.0) g/dL Hct (38.0-50.0) % MCV (80.0-98.0) fL MCH (27.0-32.0) pg MCHC (31.0-37.0) g/dL RDW Std Deviation (28.0-62.0) fl RDW Coeff of Camryn (11.0-15.0) % Plt Count (150-400) K/uL MPV (7.40-12.00) fL Neut % (Auto) (48.0-80.0) % Lymph % (Auto) (16.0-40.0) % [place] % (Auto) (0.0-15.0) % Eos % (Auto) (0.0-7.0) % Baso % (Auto) (0.0-1.5) % Neut # (Auto) (1.4-5.7) K/uL Lymph # (Auto) (0.6-2.4) K/uL [place] # (Auto) (0.0-0.8) K/uL Eos # (Auto) (0.0-0.7) K/uL Baso # (Auto) (0.0-0.1) K/uL Nucleated RBC % /100WBC Nucleated RBCs # K/uL Sodium (136-148) mmol/L Potassium (3.5-5.1) mmol/L Chloride (98-107) mmol/L Carbon Dioxide (21.0-32.0) mmol/L BUN (7.0-18.0) mg/dL Creatinine (0.8-1.3) mg/dL Est Cr Clr Drug Dosing mL/min Estimated GFR (MDRD) ml/min Glucose (74-106) mg/dL POC Glucose (70-99) mg/dL Lactic Acid 4.0 H* (0.4-2.0) mmol/L Calcium (8.5-10.1) mg/dL Phosphorus (2.6-4.7) mg/dL Magnesium (1.8-2.4) mg/dL Urine Color YELLOW Urine Appearance SLT CLOUDY Urine pH 6.5 (5.0-8.0) Ur Specific [place] 1.015 (1.001-1.035) Urine Protein NEGATIVE (NEGATIVE) mg/dL Urine Glucose (UA) NEGATIVE (NEGATIVE) mg/dL Urine Ketones NEGATIVE (NEGATIVE) mg/dL Urine Occult Blood NEGATIVE (NEGATIVE) Urine Nitrite NEGATIVE (NEGATIVE) Urine Bilirubin NEGATIVE (NEGATIVE) Urine Urobilinogen 0.2 (<2.0) EU/dL Ur Leukocyte Esterase LARGE H (NEGATIVE) Urine RBC 0-2 (0-2/HPF) Urine WBC 0-3 (0-5/HPF) Ur Epithelial Cells RARE (NONE-FEW) Urine Bacteria FEW (NEGATIVE) Blood Type O POSITIVE Antibody Screen NEGATIVE Crossmatch See Detail 01/03/21 01/04/21 01/04/21 Range/Units 21:10 01:00 05:43 WBC 16.80 H (4.0-11.0) K/uL RBC 2.35 L (4.50-5.90) M/uL Hgb 6.5 L (13.0-17.0) g/dL Hct 19.6 L (38.0-50.0) % MCV 83.4 (80.0-98.0) fL MCH 27.7 (27.0-32.0) pg MCHC 33.2 (31.0-37.0) g/dL RDW Std Deviation 46.0 (28.0-62.0) fl RDW Coeff of Camryn 16 H (11.0-15.0) % Plt Count 431 H (150-400) K/uL MPV 8.30 (7.40-12.00) fL Neut % (Auto) 78.2 (48.0-80.0) % Lymph % (Auto) 10.0 L (16.0-40.0) % [place] % (Auto) 9.9 (0.0-15.0) % Eos % (Auto) 1.8 (0.0-7.0) % Baso % (Auto) 0.1 (0.0-1.5) % Neut # (Auto) 13.1 H (1.4-5.7) K/uL Lymph # (Auto) 1.7 (0.6-2.4) K/uL [place] # (Auto) 1.7 H (0.0-0.8) K/uL Eos # (Auto) 0.3 (0.0-0.7) K/uL Baso # (Auto) 0.0 (0.0-0.1) K/uL Nucleated RBC % 0.0 /100WBC Nucleated RBCs # 0 K/uL Sodium (136-148) mmol/L Potassium (3.5-5.1) mmol/L Chloride (98-107) mmol/L Carbon Dioxide (21.0-32.0) mmol/L BUN (7.0-18.0) mg/dL Creatinine (0.8-1.3) mg/dL Est Cr Clr Drug Dosing mL/min Estimated GFR (MDRD) ml/min Glucose (74-106) mg/dL POC Glucose 139 H (70-99) mg/dL Lactic Acid 1.0 (0.4-2.0) mmol/L Calcium (8.5-10.1) mg/dL Phosphorus (2.6-4.7) mg/dL Magnesium (1.8-2.4) mg/dL Urine Color Urine Appearance Urine pH (5.0-8.0) Ur Specific [place] (1.001-1.035) Urine Protein (NEGATIVE) mg/dL Urine Glucose (UA) (NEGATIVE) mg/dL Urine Ketones (NEGATIVE) mg/dL Urine Occult Blood (NEGATIVE) Urine Nitrite (NEGATIVE) Urine Bilirubin (NEGATIVE) Urine Urobilinogen (<2.0) EU/dL Ur Leukocyte Esterase (NEGATIVE) Urine RBC (0-2/HPF) Urine WBC (0-5/HPF) Ur Epithelial Cells (NONE-FEW) Urine Bacteria (NEGATIVE) Blood Type Antibody Screen Crossmatch 01/04/21 01/04/21 01/04/21 Range/Units 05:43 08:24 11:35 WBC (4.0-11.0) K/uL RBC (4.50-5.90) M/uL Hgb (13.0-17.0) g/dL Hct (38.0-50.0) % MCV (80.0-98.0) fL MCH (27.0-32.0) pg MCHC (31.0-37.0) g/dL RDW Std Deviation (28.0-62.0) fl RDW Coeff of Camryn (11.0-15.0) % Plt Count (150-400) K/uL MPV (7.40-12.00) fL Neut % (Auto) (48.0-80.0) % Lymph % (Auto) (16.0-40.0) % [place] % (Auto) (0.0-15.0) % Eos % (Auto) (0.0-7.0) % Baso % (Auto) (0.0-1.5) % Neut # (Auto) (1.4-5.7) K/uL Lymph # (Auto) (0.6-2.4) K/uL [place] # (Auto) (0.0-0.8) K/uL Eos # (Auto) (0.0-0.7) K/uL Baso # (Auto) (0.0-0.1) K/uL Nucleated RBC % /100WBC Nucleated RBCs # K/uL Sodium 139 (136-148) mmol/L Potassium 3.9 (3.5-5.1) mmol/L Chloride 106 (98-107) mmol/L Carbon Dioxide 22.9 (21.0-32.0) mmol/L BUN 42 H (7.0-18.0) mg/dL Creatinine 1.8 H (0.8-1.3) mg/dL Est Cr Clr Drug Dosing 37.53 mL/min Estimated GFR (MDRD) 37.6 ml/min Glucose 147 H (74-106) mg/dL POC Glucose 122 H 96 (70-99) mg/dL Lactic Acid (0.4-2.0) mmol/L Calcium 7.5 L (8.5-10.1) mg/dL Phosphorus 5.0 H (2.6-4.7) mg/dL Magnesium 1.8 (1.8-2.4) mg/dL Urine Color Urine Appearance Urine pH (5.0-8.0) Ur Specific [place] (1.001-1.035) Urine Protein (NEGATIVE) mg/dL Urine Glucose (UA) (NEGATIVE) mg/dL Urine Ketones (NEGATIVE) mg/dL Urine Occult Blood (NEGATIVE) Urine Nitrite (NEGATIVE) Urine Bilirubin (NEGATIVE) Urine Urobilinogen (<2.0) EU/dL Ur Leukocyte Esterase (NEGATIVE) Urine RBC (0-2/HPF) Urine WBC (0-5/HPF) Ur Epithelial Cells (NONE-FEW) Urine Bacteria (NEGATIVE) Blood Type Antibody Screen Crossmatch Result Diagrams: 01/04/21 05:43 01/04/21 05:43 Valentín Results Last 24 hrs: Microbiology 01/03/21 15:51 Aerobic Blood Culture - Preliminary Blood - Venous - Lab Draw NO GROWTH AFTER 1 DAY Anaerobic Blood Culture - Final 01/03/21 15:45 Aerobic Blood Culture - Preliminary Blood - Venous NO GROWTH AFTER 1 DAY Anaerobic Blood Culture - Final Sepsis Event Note - Evaluation Sepsis Screening Result: No Definite Risk - Focused Exam Vital Signs: Vital Signs Temp Temp Pulse Resp BP Pulse Ox 01/04/21 13:44 36.4 C 82 16 127/61 97 01/04/21 13:29 36.8 C 86 16 124/65 97 01/04/21 13:06 36.7 C 91 19 112/50 L 01/04/21 11:38 36.6 C 81 16 112/50 L 99 01/04/21 10:35 36.8 C 81 20 116/59 L 01/04/21 10:21 36.8 C 01/04/21 10:20 36.8 C 83 16 113/59 L 01/04/21 07:37 36.6 C 84 14 119/48 L 95 - Problem List & Annotations (1) Gastric mass SNOMED Code(s): 023270314 Code(s): K31.89 - OTHER DISEASES OF STOMACH AND DUODENUM Status: Acute Current Visit: Yes (2) Anemia SNOMED Code(s): 043250121 Code(s): D64.9 - ANEMIA, UNSPECIFIED Status: Acute Priority: High Current Visit: Yes Qualifiers: Anemia type: iron deficiency Iron deficiency anemia type: chronic blood loss Qualified Code(s): D50.0 - Iron deficiency anemia secondary to blood loss (chronic) (3) GI bleed SNOMED Code(s): 39462633 Code(s): K92.2 - GASTROINTESTINAL HEMORRHAGE, UNSPECIFIED Status: Acute Priority: High Current Visit: Yes Qualifiers: GI bleed type/associated pathology: unspecified gastrointestinal hemorrhage type Qualified Code(s): K92.2 - Gastrointestinal hemorrhage, unspecified (4) Sepsis SNOMED Code(s): 82851182 Code(s): A41.9 - SEPSIS, UNSPECIFIED ORGANISM Status: Acute Priority: Medium Current Visit: Yes Qualifiers: Sepsis acute organ dysfunction status: without acute organ dysfunction (5) History of BPH SNOMED Code(s): 762137861 Code(s): Z87.438 - PERSONAL HISTORY OF OTHER DISEASES OF MALE GENITAL ORGANS Status: Acute Current Visit: No (6) Indwelling catheter replaced SNOMED Code(s): 754158729 Code(s): Z46.6 - ENCOUNTER FOR FITTING AND ADJUSTMENT OF URINARY DEVICE Status: Acute Priority: Low Current Visit: No (7) Urinary retention SNOMED Code(s): 039300881 Code(s): R33.9 - RETENTION OF URINE, UNSPECIFIED Status: Acute Current Visit: No (8) Mass of right lung SNOMED Code(s): 370667441 Code(s): R91.8 - OTHER NONSPECIFIC ABNORMAL FINDING OF LUNG FIELD Status: Acute Priority: High Current Visit: Yes - Problem List Review Problem List Initiated/Reviewed/Updated: Yes - My Orders Last 24 Hours: My Active Orders 01/03/21 23:00 Piperacillin/Tazobactam [Piperacil-Tazobact] 3.375 gm Sodium Chloride 0.9% [Normal Saline AdvBag] 50 ml IV Q8H 01/03/21 23:05 Ambulate [RC] ASDIRECTED Oxygen Therapy [RC] PRN Vital Signs [RC] Q4H Acetaminophen [TylenoL] 650 mg PO Q4H PRN Albuterol/Ipratropium [DuoNeb 3.0-0.5 MG/3 ML] 3 ml NEB Q4HRRT PRN Ondansetron [Zofran] 4 mg IVPUSH Q4H PRN Resuscitation Status Routine 01/03/21 23:06 Sequential Compression Device [OM.PC] Per Unit Routine 01/03/21 23:07 Antiembolic Devices [RC] PER UNIT ROUTINE 01/03/21 23:08 Accu Check [Blood Glucose Check, Bedside] [RC] Q6H RT Aerosol Therapy [RC] ASDIRECTED 01/03/21 23:20 Consult to Physician [CONS] Routine 01/03/21 23:21 Notify Provider Consults [RC] ASDIRECTED 01/04/21 00:13 Telemetry Monitoring [Cardiac Monitoring] [RC] . DIRECTED 01/04/21 01:20 diazePAM [Valium.] 5 mg PO DAILY 01/04/21 09:00 Pantoprazole [ProTONIX IV] 40 mg Sodium Chloride 0.9% [Normal Saline] 10 ml IV BID Tamsulosin [Flomax] 0.4 mg PO DAILY Transfuse RBC [Transfuse Red Blood Cells] [COMM] Stat 01/04/21 17:30 HEMOGLOBIN/HEMATOCRIT,HH [HEME] Routine - Plan Plan:: 70-year-old male admitted for severe anemia as well as leukocytosis Patient received 3 units of PRBC , hemoglobin has improved but the required another 2 to 3 units Continue broad-spectrum IV antibiotics , leukocytosis has improved Patient had urinary retention and showed hydronephrosis likely secondary to chronic bladder obstruction although prostate looks mildly enlarged, Bishop is in place, patient had stopped taking his Flomax, continue Flomax Patient is very anxious about his catheter and wanted to be taken out as soon as possible Patient's Hemoccult was strongly positive in the ER we will start patient on IV PPI twice daily Surgery on board plan for EGD in a.m. We will continue to monitor closely, patient will need to be optimized prior to any procedure
[2021-01-04] MEDS ORDERED: Diazepam 5 MG Tab PO ONE (20:31)
[2021-01-04] MEDS ORDERED: LORazepam 2 MG/ML SDV IVPUSH PRN (22:00)
[2021-01-05] MEDS: Piperacillin/Tazobactam 3.375 GM in Sodium Chloride 0.9% 50 ML IV SCH (06:05)
[2021-01-05 06:18] LABS: CARBON DIOXIDE,CO2 21.1 mmol/L (21.0-32.0); POTASSIUM,K 3.7 mmol/L (3.5-5.1)
[2021-01-05] MEDS ORDERED: Propofol 200 MG/20 ML SDV ONE (07:10)
[2021-01-05] MEDS ORDERED: fentaNYL 100 MCG/2 ML SDV ONE (07:10)
--- NOTE | 2021-01-05 07:39 | PCM.PREANE ---
Preanesthetic Assessment - Procedure Proposed Procedure: EGD - Anesthesia/Transfusion/Family Hx Anesthesia History: Prior Anesthesia Without Reaction Transfusion History: Prior Transfusion Without Reaction - Review of Systems General: No Symptoms Pulmonary: No Symptoms (7CM mass, Right lung) Cardiovascular: No Symptoms Gastrointestinal: No Symptoms (Crohn's, IBS) Neurological: No Symptoms Other: Reports: None - Physical Assessment NPO Status Date: 01/04/21 NPO Status Time: 22:00 Vital Signs: Last Vital Signs Temp 98.4 F 01/05/21 04:53 Pulse 73 01/05/21 04:53 Resp 16 01/05/21 04:53 BP 136/63 01/05/21 04:53 Pulse Ox 97 01/05/21 04:53 Height: 6 ft 1 in Weight: 68.5 kg ASA Class: 3 Mental Status: Alert & Oriented x3 Airway Class: Mallampati = 3 Dentition: Reports: Normal Dentition Thyro-Mental Finger Breadths: 3 Mouth Opening Finger Breadths: 4 ROM/Head Extension: Limited/Partial Lungs: Clear to Auscultation, Normal Respiratory Effort Cardiovascular: Regular Rate, Regular Rhythm - Lab Values: Laboratory Last Values WBC 16.89 K/uL (4.0-11.0) H 01/05/21 04:50 RBC 3.04 M/uL (4.50-5.90) L 01/05/21 04:50 Hgb 8.4 g/dL (13.0-17.0) L 01/05/21 04:50 Hct 25.4 % (38.0-50.0) L 01/05/21 04:50 MCV 83.6 fL (80.0-98.0) 01/05/21 04:50 MCH 27.6 pg (27.0-32.0) 01/05/21 04:50 MCHC 33.1 g/dL (31.0-37.0) 01/05/21 04:50 RDW Std Deviation 46.9 fl (28.0-62.0) 01/05/21 04:50 RDW Coeff of Camryn 16 % (11.0-15.0) H 01/05/21 04:50 Plt Count 393 K/uL (150-400) 01/05/21 04:50 MPV 8.20 fL (7.40-12.00) 01/05/21 04:50 Neut % (Auto) 77.8 % (48.0-80.0) 01/05/21 04:50 Lymph % (Auto) 8.5 % (16.0-40.0) L 01/05/21 04:50 Harney % (Auto) 9.9 % (0.0-15.0) 01/05/21 04:50 Eos % (Auto) 3.6 % (0.0-7.0) 01/05/21 04:50 Baso % (Auto) 0.2 % (0.0-1.5) 01/05/21 04:50 Neut # (Auto) 13.2 K/uL (1.4-5.7) H 01/05/21 04:50 Lymph # (Auto) 1.4 K/uL (0.6-2.4) 01/05/21 04:50 Harney # (Auto) 1.7 K/uL (0.0-0.8) H 01/05/21 04:50 Eos # (Auto) 0.6 K/uL (0.0-0.7) 01/05/21 04:50 Baso # (Auto) 0.0 K/uL (0.0-0.1) 01/05/21 04:50 Nucleated RBC % 0.0 /100WBC 01/05/21 04:50 Nucleated RBCs # 0 K/uL 01/05/21 04:50 INR 1.09 01/03/21 15:45 APTT 19.7 SEC (18.6-31.3) 01/03/21 15:45 Sodium 142 mmol/L (136-148) 01/05/21 04:50 Potassium 3.7 mmol/L (3.5-5.1) 01/05/21 04:50 Chloride 108 mmol/L (98-107) H 01/05/21 04:50 Carbon Dioxide 21.1 mmol/L (21.0-32.0) 01/05/21 04:50 BUN 30 mg/dL (7.0-18.0) H 01/05/21 04:50 Creatinine 1.6 mg/dL (0.8-1.3) H 01/05/21 04:50 Est Cr Clr Drug Dosing 42.22 mL/min 01/05/21 04:50 Estimated GFR (MDRD) 43.1 ml/min 01/05/21 04:50 Glucose 130 mg/dL (74-106) H 01/05/21 04:50 POC Glucose 129 mg/dL (70-99) H 01/05/21 06:16 Lactic Acid 1.0 mmol/L (0.4-2.0) 01/03/21 21:10 Calcium 7.3 mg/dL (8.5-10.1) L 01/05/21 04:50 Phosphorus 4.1 mg/dL (2.6-4.7) 01/05/21 04:50 Magnesium 1.8 mg/dL (1.8-2.4) 01/05/21 04:50 Troponin I < 0.050 ng/mL (0.000-0.056) 01/03/21 15:15 Urine Color YELLOW 01/03/21 17:45 Urine Appearance SLT CLOUDY 01/03/21 17:45 Urine pH 6.5 (5.0-8.0) 01/03/21 17:45 Ur Specific Stone 1.015 (1.001-1.035) 01/03/21 17:45 Urine Protein NEGATIVE mg/dL (NEGATIVE) 01/03/21 17:45 Urine Glucose (UA) NEGATIVE mg/dL (NEGATIVE) 01/03/21 17:45 Urine Ketones NEGATIVE mg/dL (NEGATIVE) 01/03/21 17:45 Urine Occult Blood NEGATIVE (NEGATIVE) 01/03/21 17:45 Urine Nitrite NEGATIVE (NEGATIVE) 01/03/21 17:45 Urine Bilirubin NEGATIVE (NEGATIVE) 01/03/21 17:45 Urine Urobilinogen 0.2 EU/dL (<2.0) 01/03/21 17:45 Ur Leukocyte Esterase LARGE (NEGATIVE) H 01/03/21 17:45 Urine RBC 0-2 (0-2/HPF) 01/03/21 17:45 Urine WBC 0-3 (0-5/HPF) 01/03/21 17:45 Ur Epithelial Cells RARE (NONE-FEW) 01/03/21 17:45 Urine Bacteria FEW (NEGATIVE) 01/03/21 17:45 Blood Type O POSITIVE 01/03/21 15:45 Antibody Screen NEGATIVE 01/03/21 15:45 Crossmatch See Detail 01/03/21 15:45 - Allergies Allergies/Adverse Reactions: Allergies Allergy/AdvReac Type Severity Reaction Status Date / Time No Known Allergies Allergy Verified 01/03/21 15:13 - Acknowledgements Anesthesia Type Planned: General Anesthesia Pt an Appropriate Candidate for the Planned Anesthesia: Yes Alternatives and Risks of Anesthesia Discussed w Pt/Guardian: Yes Pt/Guardian Understands and Agrees with Anesthesia Plan: Yes PreAnesthesia Questionnaire Gastrointestinal History: Reports: Inflammatory Bowel Disease Genitourinary History: Reports: BPH, Prostate Disorder, Retention, Urinary Psychiatric History: Reports: Anxiety Hematologic History: Reports: B12 Deficiency - Infectious Disease History Infectious Disease History: Reports: Chicken Pox - Past Surgical History HEENT Surgical History: Reports: Cataract Surgery, Tonsillectomy GI Surgical History: Reports: Colonoscopy, EGD, Small Bowel, Other (See Below) Other GI Surgeries/Procedures: Crohns Disease - SUBSTANCE USE Tobacco Use Within Last Twelve Months: No Second Hand Smoke Exposure: No Recreational Drug Use History: No - HOME MEDS Home Medications: Home Meds Codeine Sulfate 30 mg PO QID 02/19/19 [History] Sulfamethoxazole/Trimethoprim [Bactrim Ds Tablet] 1 each PO BID 7 Days #14 tablet 02/19/19 [Rx] Tamsulosin HCl [Flomax] 1 tab DAILY 02/19/19 [History] diazePAM [Valium] 5 mg PO DAILY 02/19/19 [History] - CURRENT (IN HOUSE) MEDS Current Meds: Current Medications Acetaminophen (Acetaminophen 325 Mg Tab) 650 mg PO Q4H PRN PRN Reason: Pain (Mild 1-3)/fever Albuterol/Ipratropium (Albuterol/Ipratropium 3.0-0.5 Mg/3 Ml Neb Soln) 3 ml NEB Q4HRRT PRN PRN Reason: Shortness Of Breath/wheezing Diazepam (Diazepam 5 Mg Tab) 5 mg PO DAILY [facility] Last Admin: 01/04/21 09:09 Dose: 5 mg Documented by: Piperacillin Sod/Tazobactam (Sod 3.375 gm/ Sodium Chloride) 50 mls @ 100 mls/hr IV Q8H [facility] Last Admin: 01/05/21 06:05 Dose: 100 mls/hr Documented by: Pantoprazole Sodium 40 mg/ (Sodium Chloride) 10 mls @ 300 mls/hr IV BID [facility] Last Admin: 01/04/21 20:03 Dose: 300 mls/hr Documented by: Ondansetron HCl (Ondansetron 4 Mg/2 Ml Sdv) 4 mg IVPUSH Q4H PRN PRN Reason: Nausea/Vomiting Sodium Chloride (Sodium Chloride 0.9% 10 Ml Syringe) 10 ml FLUSH ASDIRECTED PRN PRN Reason: Keep Vein Open Last Admin: 01/03/21 16:48 Dose: 10 ml Documented by: Sodium Chloride (Sodium Chloride 0.9% 2.5 Ml Syringe) 2.5 ml FLUSH ASDIRECTED PRN PRN Reason: Keep Vein Open Last Admin: 01/03/21 16:48 Dose: 2.5 ml Documented by: Tamsulosin HCl (Tamsulosin 0.4 Mg Cap.Er) 0.4 mg PO DAILY [facility] Last Admin: 01/04/21 09:08 Dose: 0.4 mg Documented by: Discontinued Medications Diazepam (Diazepam 5 Mg Tab) 10 mg PO ONETIME ONE Stop: 01/04/21 20:32 Last Admin: 01/04/21 21:08 Dose: 10 mg Documented by: Fentanyl (Fentanyl 100 Mcg/2 Ml Sdv) Confirm Administered Dose 100 mcg .ROUTE .STK-MED ONE Stop: 01/05/21 07:11 Furosemide (Furosemide 20 Mg/2 Ml Vial) 10 mg IVPUSH NOW ONE Stop: 01/03/21 23:11 Last Admin: 01/04/21 00:03 Dose: 10 mg Documented by: Piperacillin Sod/Tazobactam (Sod 4.5 gm/ Sodium Chloride) 100 mls @ 100 mls/hr IV ONETIME ONE Stop: 01/03/21 16:21 Last Admin: 01/03/21 16:47 Dose: 100 mls/hr Documented by: Pantoprazole Sodium 80 mg/ (Sodium Chloride) 20 mls @ 420 mls/hr IVPUSH ONETIME ONE Stop: 01/03/21 15:25 Last Admin: 01/03/21 16:45 Dose: 420 mls/hr Documented by: Lactated Ringer's (Ringers, Lactated) 1,000 mls @ 999 mls/hr IV .BOLUS ONE Stop: 01/03/21 18:18 Last Admin: 01/03/21 18:05 Dose: 999 mls/hr Documented by: Lactated Ringer's (Ringers, Lactated) 500 mls @ 1,000 mls/hr IV .BOLUS ONE Stop: 01/03/21 17:47 Last Admin: 01/03/21 18:05 Dose: 1,000 mls/hr Documented by: Iron Dextran 100 mg/ Sodium (Chloride) 252 mls @ 42 mls/hr IV ONETIME ONE Stop: 01/04/21 05:11 Last Admin: 01/04/21 00:10 Dose: 42 mls/hr Documented by: Lidocaine HCl (Lidocaine 1% 5 Ml Sdv) Confirm Administered Dose 5 ml .ROUTE .STK-MED ONE Stop: 01/05/21 07:10 Lorazepam (Lorazepam 2 Mg/Ml Sdv) 1 mg IVPUSH ONETIME PRN PRN Reason: Insomnia Propofol (Propofol 200 Mg/20 Ml Sdv) Confirm Administered Dose 400 mg .ROUTE .STK-MED ONE Stop: 01/05/21 07:11
--- NOTE | 2021-01-05 08:27 | PCM.POSTAN ---
POST ANESTHESIA ASSESSMENT - MENTAL STATUS Mental Status: Alert, Oriented - VITAL SIGNS Vital Signs: Last Vital Signs Temp 98.1 F 01/05/21 07:41 Pulse 91 01/05/21 07:41 Resp 18 01/05/21 07:41 BP 134/74 01/05/21 07:41 Pulse Ox 96 01/05/21 07:41 - RESPIRATORY Respiratory Status: Respiratory Rate WNL, Airway Patent, O2 Saturation Stable - CARDIOVASCULAR CV Status: Pulse Rate WNL, Blood Pressure Stable - GASTROINTESTINAL GI Status: No Symptoms - PAIN Pain Score: 0 - POST OP HYDRATION Hydration Status: Adequate & Stable
--- NOTE | 2021-01-05 08:28 | PCM.OPNOTE ---
- General Post-Op/Procedure Note Date of Surgery/Procedure: 01/05/21 Operative Procedure(s): Esophagogastroduodenoscopy with duodenal, proximal stomach and distal esophageal biopsies. Pre Op Diagnosis: GI bleed with profound anemia. Unexplained weight loss. 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 Distal esophagitis. Anesthesia Technique: MAC (ASA III) Primary Surgeon: Ryan De Anda Clutch Specialist: Toño Portillo Condition: Stable Free Text/Narrative:: Intake & Output 01/04/21 01/05/21 01/05/21 19:59 03:59 11:59 Intake Total 760 110 Output Total 725 9520 Balance 35 -1640 DICTATION [id number] CPT CODE 86428
[2021-01-05] MEDS ORDERED: Lactated Ringers 1,000 ML IV SCH (08:30)
--- NOTE | 2021-01-05 08:35 | PCM48HPAN ---
Post Anesthesia Note - EVALUATION WITHIN 48HRS OF ANESTHETIC Vital Signs in Normal Range: Yes Patient Participated in Evaluation: Yes Respiratory Function Stable: Yes Airway Patent: Yes Cardiovascular Function Stable: Yes Hydration Status Stable: Yes Pain Control Satisfactory: Yes Nausea and Vomiting Control Satisfactory: Yes Mental Status Recovered: Yes Vital Signs: Last Vital Signs Temp 98.1 F 01/05/21 07:41 Pulse 91 01/05/21 07:41 Resp 18 01/05/21 07:41 BP 134/74 01/05/21 07:41 Pulse Ox 96 01/05/21 07:41 - COMMENTS/OBSERVATIONS Free Text/Narrative:: Pt doing well post-op. VSS. No apparent anesthetic complications. Dr. Mark Molina
[2021-01-05] MEDS: Diazepam 5 MG Tab PO SCH ×2 (09:32→11:17)
[2021-01-05] MEDS: Pantoprazole 40 MG in Sodium Chloride 0.9% 10 ML IV SCH (09:32)
[2021-01-05] MEDS: Tamsulosin 0.4 MG Cap.ER PO SCH (09:32)
--- NOTE | 2021-01-05 11:22 | PCM.DCSUM1 ---
Discharge Summary - Hospital Course Free Text/Narrative:: Patient is a 70-year-old male with past medical history of dilated cardiomyopathy, Crohn's disease, CKD, prostatomegaly status post embolization who was sent in from his PCPs office due to generalized fatigue as well as intermittent abdominal discomfort for the past 2 weeks. The lab work done at the primary care doctor's office showed significant anemia with critically low hemoglobin hemoglobin of 3.7 as well as elevated WBC count. Patient states no diarrhea. There is some dark brown-black stool although he states he takes iron tablets at home. Patient has a history of Crohn's. No high fevers. No exacerbating or alleviating factors. Abdominal pain is since resolved. Patient denies respiratory symptoms. Patient has no additional complaints at this time. No additional infectious complaints. Patient was sent to the ER due to critical labs. In the ER CT of abdomen was done which showed a marked circumferential wall thickening of the gastric antrum highly suspicious for carcinoma. The bladder was also distended with several bladder diverticula noted, prostate was mildly enlarged, there was a 7 cm mass in the right lung base that was incompletely demonstrated. Patient received IV antibiotics and blood transfusion was started in the ER. Surgery was consulted due to the mass and initially transferred was recommended. Due to nonavailability of the breath beds throughout the [facility] the patient was admitted to the ospital for optimization of his anemia. 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 Patient wanted to follow up with his out of state doctor for further work up of the mass. Patient was informed he has to get it evaluated rajesh and see an oncologist. Patient requested dc post EGD after he tolerated diet, patient was discharged home with instructions to fu with his pcp and oncology for further care. Final biopsy still pending. Diagnosis: Stroke: No - Discharge Data Discharge Date: 01/05/21 Discharge Disposition: Home, Self-Care 01 Condition: Stable - Referral to Home Health Primary Care Physician: PCP None - Discharge Diagnosis/Problem(s) (1) Gastric mass SNOMED Code(s): 423193433 ICD Code: K31.89 - OTHER DISEASES OF STOMACH AND DUODENUM Status: Acute (2) Anemia SNOMED Code(s): 910993065 ICD Code: D64.9 - ANEMIA, UNSPECIFIED Status: Acute Priority: High Qualifiers: Anemia type: iron deficiency Iron deficiency anemia type: chronic blood loss Qualified Code(s): D50.0 - Iron deficiency anemia secondary to blood loss (chronic) (3) GI bleed SNOMED Code(s): 84114235 ICD Code: K92.2 - GASTROINTESTINAL HEMORRHAGE, UNSPECIFIED Status: Acute Priority: High Qualifiers: GI bleed type/associated pathology: unspecified gastrointestinal hemorrhage type Qualified Code(s): K92.2 - Gastrointestinal hemorrhage, unspecified (4) Sepsis SNOMED Code(s): 69438782 ICD Code: A41.9 - SEPSIS, UNSPECIFIED ORGANISM Status: Acute Priority: Medium Qualifiers: Sepsis acute organ dysfunction status: without acute organ dysfunction (5) History of BPH SNOMED Code(s): 886967436 ICD Code: Z87.438 - PERSONAL HISTORY OF OTHER DISEASES OF MALE GENITAL ORGANS Status: Acute (6) Indwelling catheter replaced SNOMED Code(s): 214864282 ICD Code: Z46.6 - ENCOUNTER FOR FITTING AND ADJUSTMENT OF URINARY DEVICE Status: Acute Priority: Low (7) Urinary retention SNOMED Code(s): 174818461 ICD Code: R33.9 - RETENTION OF URINE, UNSPECIFIED Status: Acute (8) Mass of right lung SNOMED Code(s): 429457461 ICD Code: R91.8 - OTHER NONSPECIFIC ABNORMAL FINDING OF LUNG FIELD Status: Acute Priority: High - Patient Summary/Data Operative Procedure(s) Performed: Esophagogastroduodenoscopy with duodenal, proximal stomach and distal esophageal biopsies. Consults: Consultations 01/03/21 23:20 Consult to Physician [CONS] Routine - Patient Instructions Diet: Usual Diet as Tolerated Activity: As Tolerated Notify Provider of: Fever, Increased Pain, Swelling and Redness, Drainage, Nausea and/or Vomiting - Discharge Plan *PRESCRIPTION DRUG MONITORING PROGRAM REVIEWED*: No *COPY OF PRESCRIPTION DRUG MONITORING REPORT IN PATIENT JOSE L: No Prescriptions/Med Rec: Ferrous Sulfate [Iron] 325 mg PO BID #60 tablet levoFLOXacin [Levaquin] 750 mg PO DAILY #5 tab Pantoprazole [ProTONIX] 40 mg PO DAILY #30 tab.cr Home Medications: Home Meds Codeine Sulfate 30 mg PO QID 02/19/19 [History] Tamsulosin HCl [Flomax] 1 tab DAILY 02/19/19 [History] diazePAM [Valium] 5 mg PO DAILY 02/19/19 [History] Ferrous Sulfate [Iron] 325 mg PO BID #60 tablet 01/05/21 [Rx] Pantoprazole [ProTONIX] 40 mg PO DAILY #30 tab.cr 01/05/21 [Rx] levoFLOXacin [Levaquin] 750 mg PO DAILY #5 tab 01/05/21 [Rx] Patient Handouts: Anemia, Upper Endoscopy, Adult, Care After, Upper Endoscopy, Adult, Iron tablets, capsules, extended-release tablets, Gastrointestinal Bleeding, [id number], Pantoprazole tablets, Levofloxacin tablets Referrals: Ryan De Anda MD [Physician] - 01/13/21 9:45 am (Please arrive 15 minutes early with your ID and wearing a face covering. ) Saurabh Tapia MD [Physician] - (If you do not follow up with your primary care provider out of state, please make an appointment with Dr. Tapia in [place].) - Discharge Summary/Plan Comment DC Time >30 min.: No Total # of Minutes for Discharge Time: 25 - Patient Data Vitals - Most Recent: Last Vital Signs Temp 36.8 C 01/05/21 08:20 Pulse 95 01/05/21 09:00 Resp 16 01/05/21 09:00 BP 135/68 01/05/21 09:00 Pulse Ox 96 01/05/21 09:00 Weight - Most Recent: 68.5 kg I&O - Last 24 hours: Intake & Output 01/04/21 01/05/21 01/05/21 22:59 06:59 14:59 Intake Total 410 50 610 Output Total 725 1750 Balance -315 -1700 610 Lab Results - Last 24 hrs: Laboratory Results - last 24 hr 01/03/21 01/03/21 01/04/21 Range/Units 15:45 17:45 11:35 WBC (4.0-11.0) K/uL RBC (4.50-5.90) M/uL Hgb (13.0-17.0) g/dL Hct (38.0-50.0) % MCV (80.0-98.0) fL MCH (27.0-32.0) pg MCHC (31.0-37.0) g/dL RDW Std Deviation (28.0-62.0) fl RDW Coeff of Camryn (11.0-15.0) % Plt Count (150-400) K/uL MPV (7.40-12.00) fL Neut % (Auto) (48.0-80.0) % Lymph % (Auto) (16.0-40.0) % Erie % (Auto) (0.0-15.0) % Eos % (Auto) (0.0-7.0) % Baso % (Auto) (0.0-1.5) % Neut # (Auto) (1.4-5.7) K/uL Lymph # (Auto) (0.6-2.4) K/uL [place] # (Auto) (0.0-0.8) K/uL Eos # (Auto) (0.0-0.7) K/uL Baso # (Auto) (0.0-0.1) K/uL Nucleated RBC % /100WBC Nucleated RBCs # K/uL Sodium (136-148) mmol/L Potassium (3.5-5.1) mmol/L Chloride (98-107) mmol/L Carbon Dioxide (21.0-32.0) mmol/L BUN (7.0-18.0) mg/dL Creatinine (0.8-1.3) mg/dL Est Cr Clr Drug Dosing mL/min Estimated GFR (MDRD) ml/min Glucose (74-106) mg/dL POC Glucose 96 (70-99) mg/dL Calcium (8.5-10.1) mg/dL Phosphorus (2.6-4.7) mg/dL Magnesium (1.8-2.4) mg/dL Urine RBC 0-2 (0-2/HPF) Urine WBC 0-3 (0-5/HPF) Ur Epithelial Cells RARE (NONE-FEW) Urine Bacteria FEW (NEGATIVE) Blood Type O POSITIVE Antibody Screen NEGATIVE Crossmatch See Detail 01/04/21 01/05/21 01/05/21 Range/Units 17:53 00:31 04:50 WBC 16.89 H (4.0-11.0) K/uL RBC 3.04 L (4.50-5.90) M/uL Hgb 9.3 L 8.4 L (13.0-17.0) g/dL Hct 28.4 L 25.4 L (38.0-50.0) % MCV 83.6 (80.0-98.0) fL MCH 27.6 (27.0-32.0) pg MCHC 33.1 (31.0-37.0) g/dL RDW Std Deviation 46.9 (28.0-62.0) fl RDW Coeff of Camryn 16 H (11.0-15.0) % Plt Count 393 (150-400) K/uL MPV 8.20 (7.40-12.00) fL Neut % (Auto) 77.8 (48.0-80.0) % Lymph % (Auto) 8.5 L (16.0-40.0) % Erie % (Auto) 9.9 (0.0-15.0) % Eos % (Auto) 3.6 (0.0-7.0) % Baso % (Auto) 0.2 (0.0-1.5) % Neut # (Auto) 13.2 H (1.4-5.7) K/uL Lymph # (Auto) 1.4 (0.6-2.4) K/uL Erie # (Auto) 1.7 H (0.0-0.8) K/uL Eos # (Auto) 0.6 (0.0-0.7) K/uL Baso # (Auto) 0.0 (0.0-0.1) K/uL Nucleated RBC % 0.0 /100WBC Nucleated RBCs # 0 K/uL Sodium (136-148) mmol/L Potassium (3.5-5.1) mmol/L Chloride (98-107) mmol/L Carbon Dioxide (21.0-32.0) mmol/L BUN (7.0-18.0) mg/dL Creatinine (0.8-1.3) mg/dL Est Cr Clr Drug Dosing mL/min Estimated GFR (MDRD) ml/min Glucose (74-106) mg/dL POC Glucose 105 H (70-99) mg/dL Calcium (8.5-10.1) mg/dL Phosphorus (2.6-4.7) mg/dL Magnesium (1.8-2.4) mg/dL Urine RBC (0-2/HPF) Urine WBC (0-5/HPF) Ur Epithelial Cells (NONE-FEW) Urine Bacteria (NEGATIVE) Blood Type Antibody Screen Crossmatch 01/05/21 01/05/21 Range/Units 04:50 06:16 WBC (4.0-11.0) K/uL RBC (4.50-5.90) M/uL Hgb (13.0-17.0) g/dL Hct (38.0-50.0) % MCV (80.0-98.0) fL MCH (27.0-32.0) pg MCHC (31.0-37.0) g/dL RDW Std Deviation (28.0-62.0) fl RDW Coeff of Camryn (11.0-15.0) % Plt Count (150-400) K/uL MPV (7.40-12.00) fL Neut % (Auto) (48.0-80.0) % Lymph % (Auto) (16.0-40.0) % [place]rie % (Auto) (0.0-15.0) % Eos % (Auto) (0.0-7.0) % Baso % (Auto) (0.0-1.5) % Neut # (Auto) (1.4-5.7) K/uL Lymph # (Auto) (0.6-2.4) K/uL Erie # (Auto) (0.0-0.8) K/uL Eos # (Auto) (0.0-0.7) K/uL Baso # (Auto) (0.0-0.1) K/uL Nucleated RBC % /100WBC Nucleated RBCs # K/uL Sodium 142 (136-148) mmol/L Potassium 3.7 (3.5-5.1) mmol/L Chloride 108 H (98-107) mmol/L Carbon Dioxide 21.1 (21.0-32.0) mmol/L BUN 30 H (7.0-18.0) mg/dL Creatinine 1.6 H (0.8-1.3) mg/dL Est Cr Clr Drug Dosing 42.22 mL/min Estimated GFR (MDRD) 43.1 ml/min Glucose 130 H (74-106) mg/dL POC Glucose 129 H (70-99) mg/dL Calcium 7.3 L (8.5-10.1) mg/dL Phosphorus 4.1 (2.6-4.7) mg/dL Magnesium 1.8 (1.8-2.4) mg/dL Urine RBC (0-2/HPF) Urine WBC (0-5/HPF) Ur Epithelial Cells (NONE-FEW) Urine Bacteria (NEGATIVE) Blood Type Antibody Screen Crossmatch YARA Results - Last 24 hrs: Microbiology 01/03/21 15:51 Aerobic Blood Culture - Preliminary Blood - Venous - Lab Draw NO GROWTH AFTER 1 DAY Anaerobic Blood Culture - Final 01/03/21 15:45 Aerobic Blood Culture - Preliminary Blood - Venous NO GROWTH AFTER 1 DAY Anaerobic Blood Culture - Final Med Orders - Current: Current Medications Acetaminophen (Acetaminophen 325 Mg Tab) 650 mg PO Q4H PRN PRN Reason: Pain (Mild 1-3)/fever Albuterol/Ipratropium (Albuterol/Ipratropium 3.0-0.5 Mg/3 Ml Neb Soln) 3 ml NEB Q4HRRT PRN PRN Reason: Shortness Of Breath/wheezing Diazepam (Diazepam 5 Mg Tab) 5 mg PO DAILY [facility] Last Admin: 01/05/21 11:17 Dose: Not Given Documented by: Piperacillin Sod/Tazobactam (Sod 3.375 gm/ Sodium Chloride) 50 mls @ 100 mls/hr IV Q8H [facility] Last Admin: 01/05/21 06:05 Dose: 100 mls/hr Documented by: Pantoprazole Sodium 40 mg/ (Sodium Chloride) 10 mls @ 300 mls/hr IV BID [facility] Last Admin: 01/05/21 09:32 Dose: 300 mls/hr Documented by: Lactated Ringer's (Ringers, Lactated) 1,000 mls @ 125 mls/hr IV ASDIRECTED [facility] Ondansetron HCl (Ondansetron 4 Mg/2 Ml Sdv) 4 mg IVPUSH Q4H PRN PRN Reason: Nausea/Vomiting Sodium Chloride (Sodium Chloride 0.9% 10 Ml Syringe) 10 ml FLUSH ASDIRECTED PRN PRN Reason: Keep Vein Open Last Admin: 01/03/21 16:48 Dose: 10 ml Documented by: Sodium Chloride (Sodium Chloride 0.9% 2.5 Ml Syringe) 2.5 ml FLUSH ASDIRECTED PRN PRN Reason: Keep Vein Open Last Admin: 01/03/21 16:48 Dose: 2.5 ml Documented by: Tamsulosin HCl (Tamsulosin 0.4 Mg Cap.Er) 0.4 mg PO DAILY [facility] Last Admin: 01/05/21 09:32 Dose: 0.4 mg Documented by: Discontinued Medications Diazepam (Diazepam 5 Mg Tab) 10 mg PO ONETIME ONE Stop: 01/04/21 20:32 Last Admin: 01/04/21 21:08 Dose: 10 mg Documented by: Fentanyl (Fentanyl 100 Mcg/2 Ml Sdv) Confirm Administered Dose 100 mcg .ROUTE .STK-MED ONE Stop: 01/05/21 07:11 Furosemide (Furosemide 20 Mg/2 Ml Vial) 10 mg IVPUSH NOW ONE Stop: 01/03/21 23:11 Last Admin: 01/04/21 00:03 Dose: 10 mg Documented by: Piperacillin Sod/Tazobactam (Sod 4.5 gm/ Sodium Chloride) 100 mls @ 100 mls/hr IV ONETIME ONE Stop: 01/03/21 16:21 Last Admin: 01/03/21 16:47 Dose: 100 mls/hr Documented by: Pantoprazole Sodium 80 mg/ (Sodium Chloride) 20 mls @ 420 mls/hr IVPUSH ONETIME ONE Stop: 01/03/21 15:25 Last Admin: 01/03/21 16:45 Dose: 420 mls/hr Documented by: Lactated Ringer's (Ringers, Lactated) 1,000 mls @ 999 mls/hr IV .BOLUS ONE Stop: 01/03/21 18:18 Last Admin: 01/03/21 18:05 Dose: 999 mls/hr Documented by: Lactated Ringer's (Ringers, Lactated) 500 mls @ 1,000 mls/hr IV .BOLUS ONE Stop: 01/03/21 17:47 Last Admin: 01/03/21 18:05 Dose: 1,000 mls/hr Documented by: Iron Dextran 100 mg/ Sodium (Chloride) 252 mls @ 42 mls/hr IV ONETIME ONE Stop: 01/04/21 05:11 Last Admin: 01/04/21 00:10 Dose: 42 mls/hr Documented by: Lidocaine HCl (Lidocaine 1% 5 Ml Sdv) Confirm Administered Dose 5 ml .ROUTE .STK-MED ONE Stop: 01/05/21 07:10 Lorazepam (Lorazepam 2 Mg/Ml Sdv) 1 mg IVPUSH ONETIME PRN PRN Reason: Insomnia Propofol (Propofol 200 Mg/20 Ml Sdv) Confirm Administered Dose 400 mg .ROUTE .[facility]-MED ONE Stop: 01/05/21 07:11
--- NOTE | 2021-01-05 18:15 | OR ---
SURGEON: Ryan De Anda M.D. DATE OF PROCEDURE: 01/05/2021 OPERATIONS PERFORMED: Esophagogastroduodenoscopy with duodenal and gastric biopsies. PRIMARY SURGEON: Ryan De Anda M.D. ARCHITECTURE PROFESSOR: [employer] Research Technician: KAREN Cancino student. ANESTHESIA: MAC. ASA CLASSIFICATION: III. PREOPERATIVE DIAGNOSES: 1. Gastrointestinal bleed with profound anemia. 2. Unexplained weight loss. 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 3. Distal esophagitis. DESCRIPTION OF PROCEDURE: The patient was taken to the endoscopy room and positioned on the endoscopy table in the supine position. Time-out was called for appropriate identification of the patient and procedure. Monitored anesthesia care was provided. The bite block was placed between the patient's teeth. The gastroscope was inserted through the bite block into the oropharynx and advanced without difficulty through the esophagus into the distal stomach. The pylorus was visualized and did not show an acute abnormality. However, once we traversed the pylorus, there was a large necrotic appearing neoplasm suggestive of a duodenal bulb malignancy. I was able to maneuver the gastroscope beyond the neoplasm and the distal duodenum certainly appears clear. Once the scope was withdrawn to the duodenal bulb, multiple biopsies were obtained. The gastroscope was then withdrawn to the stomach. Again, the antrum and pylorus do not show any obvious involvement. The gastroscope was retroflexed to visualize the proximal stomach, where a second ulcerated lesion was identified. Separate biopsies of this area were obtained as well. The gastroscope was then straightened and slowly withdrawn and the ulcerated proximal neoplasm again visualized. The GE junction was well defined but does show [id number] esophagitis. I did not see any obvious neoplasm in the distal esophagus, however, biopsies of this area were obtained as well. The mid and proximal esophagus demonstrated good contractility. No other lesions were identified. The vocal cords were briefly visualized as the scope was withdrawn and noted to move symmetrically. The gastroscope was then removed with the patient having tolerated the procedure well. He was taken to recovery room in stable condition. OTTO / JENN /[id number]
== END 2021-01-05 12:10 | disposition home or self-care (01) | DRG 811 ==
LOC: MW.ED 15:02 → MW.MS 20:31 → MW.OB 22:26 → MW.MS 23:59
PROVIDERS: ADMIT Student in an Organized Health Care Education/Training Program; ATTEND Student in an Organized Health Care Education/Training Program
PROC: 30233N1 Transfusion of Nonautologous Red Blood Cells into Peripheral Vein, Percutaneous Approach (ICD-10-PCS; principal; 2021-01-03)
PROC: 0DB98ZX Excision of Duodenum, Via Natural or Artificial Opening Endoscopic, Diagnostic (ICD-10-PCS; 2021-01-05)
PROC: 0DB68ZX Excision of Stomach, Via Natural or Artificial Opening Endoscopic, Diagnostic (ICD-10-PCS; 2021-01-05)
DX: D50.0 Iron deficiency anemia secondary to blood loss (chronic) (principal); N17.9 Acute kidney failure, unspecified; D64.9 Anemia, unspecified; A41.9 Sepsis, unspecified organism; K50.90 Crohn's disease, unspecified, without complications; R33.9 Retention of urine, unspecified; C16.9 Malignant neoplasm of stomach, unspecified; C17.0 Malignant neoplasm of duodenum; E53.8 Deficiency of other specified B group vitamins; R91.8 Other nonspecific abnormal finding of lung field; N40.1 Benign prostatic hyperplasia with lower urinary tract symptoms; R33.8 Other retention of urine; F41.9 Anxiety disorder, unspecified; K20.90 Esophagitis, unspecified without bleeding; Z87.438 Personal history of other diseases of male genital organs; Z79.899 Other long term (current) drug therapy; Z98.49 Cataract extraction status, unspecified eye; Z98.890 Other specified postprocedural states; D50.9 Iron deficiency anemia, unspecified; R10.11 Right upper quadrant pain; R53.83 Other fatigue; Z20.822 Contact with and (suspected) exposure to COVID-19
CPT/HCPCS: 36415 ×2; 36430; 51702; 71045; 74176; 80053; 81001; 82607; 82746; 83550; 83605; 83690; 84484; 85025; 85610; 85730; 86850; 86900; 86901; 86920 ×2; 86921 ×2; 86922 ×2; 87040 ×2; 87086; 87088; 87186; 93005; 96365; 96375; 99285; C9113; J2543; J7120 ×2; P9016; U0002; 00731; 80048; 82947; 83735; 84100; 85014; 85018; 88305; 88342; 93010; 99221; 99238; 99291; A9270-GY; J1750; J1940; J2704; J3010; J7050

== ENCOUNTER 2021-02-09 03:27 | Emergency (ER) | payer MEDICARE ==
[2021-02-09] MEDS ORDERED: Sodium Chloride 0.9% 2.5 ML Syringe FLUSH PRN (03:31)
[2021-02-09] MEDS ORDERED: Sodium Chloride 0.9% 10 ML Syringe FLUSH PRN (03:31)
--- NOTE | 2021-02-09 03:38 | EDM.PDOC ---
<Aly Morrow - Last Filed: 02/09/21 05:31> ED HPI GENERAL MEDICAL PROBLEM - General Chief Complaint: General Stated Complaint: HEMOGLOBIN LEVELS Time Seen by Provider: 02/09/21 03:35 - History of Present Illness INITIAL COMMENTS - FREE TEXT/NARRATIVE: History of present illness: is a historian. Patient is not a good historian but very friendly and talkative. says he was diagnosed with stomach cancer 2 weeks ago and has an appointment a week from today with his oncologist which is his first appointment. He is too weak to get to the bathroom without getting short of breath today and so they brought him in. The patient takes pain medicine for the stomach pain. The patient had an oxygen saturation of 86% on room air in the home but is now 95%. Otherwise showed me a biopsy report from the mass in the stomach that said it was a poorly differentiated cancer. He also was noted on CT of the abdomen and pelvis done 01/03/2021 to have a large mass in the lung. The total burden of c maraer and type of cancer is not readily available to me in the chart that I have access to. Review of systems: As per history of present illness and below otherwise all systems reviewed and negative. Past medical history: As per history of present illness and as reviewed below otherwise noncontributory. Surgical history: As per history of present illness and as reviewed below otherwise nonco ntributory. Social history: No reported history of drug or alcohol abuse. Family history: As per history of present illness and as reviewed below otherwise noncontributory. Physical exam: Constitutional - well developed, well-nourished and in no acute distress HEENT - normocephalic, no evidence of trauma - external nose and mouth normal - no mass in neck and no JVD - mucosae moist EYES - full EOM, PERRL, no icterus - no evidence of inflammation, injection, or drainage Respiratory - no respiratory distress, equal bilateral expansion, lungs clear to auscultation and no abnormal lung sounds Cardiovascular - Regular Rhythm with S1 and S2 appreciated and no murmur, gallop or rub. GI - abdomen soft without distension or organomegaly - normal bowel sounds - no guard or rebound Musculoskeletal no gross deformity of long bones or joints - no tenderness, swelling or edema Neurologic - Alert and oriented times four - CN II-XII grossly intact - motor sensory and coordination symmetrically normal Psychiatric - appropriate mood and affect with normal thought content Hematologic - No petechiae or purpura - mucosa appropriate color and sclera not pale - normal nail bed color and refill Integument -very pale-no rash or evidence of trauma - normal turgor Diagnostics: [] Therapeutics: [] Impression: [] Plan: [] Definitive disposition and diagnosis as appropriate pending reevaluation and review of above. Abdomen Pain Score (Numeric/FACES): 5 - Related Data Allergies Allergy/AdvReac Type Severity Reaction Status Date / Time No Known Allergies Allergy Verified 01/03/21 15:13 Home Meds: Home Meds Codeine Sulfate 30 mg PO QID 02/19/19 [History] Tamsulosin HCl [Flomax] 1 tab PO DAILY 02/19/19 [History] diazePAM [Valium] 5 mg PO DAILY 02/19/19 [History] Ferrous Sulfate [Iron] 325 mg PO BID #60 tablet 01/05/21 [Rx] HYDROmorphone HCl [Hydromorphone HCl] 4 mg PO Q4H PRN 02/09/21 [History] Past Medical History Gastrointestinal History: Reports: Inflammatory Bowel Disease Genitourinary History: Reports: BPH, Prostate Disorder, Retention, Urinary Psychiatric History: Reports: Anxiety Hematologic History: Reports: B12 Deficiency - Infectious Disease History Infectious Disease History: Reports: Chicken Pox - Past Surgical History HEENT Surgical History: Reports: Cataract Surgery, Tonsillectomy GI Surgical History: Reports: Colonoscopy, EGD, Small Bowel, Other (See Below) Other GI Surgeries/Procedures: Crohns Disease Social & Family History - Family History Family Medical History: No Pertinent Family History - Caffeine Use Caffeine Use: Reports: None Caffeine Use Comment: Unable to assess, patient sleepy ED ROS GENERAL - Review of Systems Review Of Systems: Comprehensive ROS is negative, except as noted in HPI. ED EXAM, GENERAL - Physical Exam Exam: See Below Free Text/Narrative:: My physical exam is in the HPI #1 Interpretation EKG Interpretation Comments: KG sinus tachycardia heart rate 112 IN 178 QT duration 460 axis [address] and T compared to 01/03/2021 no acute change impression no acute injury Course - Re-Assessments/Exams Free Text/Narrative Re-Assessment/Exam: 02/09/21 04:10 Hemoglobin reported at 2.9. Patient is supposed to follow-up with Dr. Perry Mathur for oncology however his appointment is 16 February. 02/09/21 05:12 I discussed the case with Dr. Nix here who felt like if the surgeon did not think they could stop the bleeding we needed to transfer him to a place with oncology and gastroenterology. I talked to the surgeon Dr. Nix who said quite reasonably that there is no reason to keep scope with him and filling up his tank with blood when he was still leaking and needed an oncologist and reject opener and filler. [facility]iscussed with [facility] and they agreed with the plan but they do not have a bed. Discussed with [facility] and they agreed with the plan but they do not have a bed. 02/09/21 05:31 At the end of my shift the patient is being transfused and given pain medicine. Placement is being attempted by the transfer center for [place]. [facility] will call me if they get a bed. Patient started over to my partner Dr. Enriquez for definitive disposition. Departure - Departure Disposition: DC/Tfer to [facility] 02 Clinical Impression: Blood loss anemia, Stomach cancer - Discharge Information Referrals: Saurabh Tapia MD [Primary Care Provider] - Forms: ED Department Discharge <Kwabena Enriquez - Last Filed: 02/09/21 09:59> Course - Vital Signs Last Recorded V/S: Last Vital Signs Temp 98.8 F 02/09/21 09:30 Pulse 101 H 02/09/21 09:30 Resp 16 02/09/21 09:30 BP 117/63 02/09/21 09:30 Pulse Ox 97 02/09/21 09:30 - Orders/Labs/Meds Orders: Active Orders 24 hr Category Date Time Status Verify Patient Consent Obtain [RC] ASDIRECTED Care 02/09/21 06:02 Active FRESH FROZEN PLASMA [BBK] Stat Lab 02/09/21 03:50 Results RED BLOOD CELLS LP [BBK] Stat Lab 02/09/21 03:50 Results TYPE AND SCREEN [BBK] Stat Lab 02/09/21 03:50 Results Sodium Chloride 0.9% [Saline Flush] Med 02/09/21 03:31 Active 10 ml FLUSH ASDIRECTED PRN Sodium Chloride 0.9% [Saline Flush] Med 02/09/21 03:31 Active 2.5 ml FLUSH ASDIRECTED PRN Saline Lock Insert [OM.PC] Stat [facility] 02/09/21 03:31 Ordered Transfuse Fresh Frozen Plasma [COMM] Stat [facility] 02/09/21 06:01 Ordered Transfuse Red Blood Cells [COMM] Stat [facility] 02/09/21 03:57 Ordered Medication Orders Sodium Chloride (Sodium Chloride 0.9% 10 Ml Syringe) 10 ml FLUSH ASDIRECTED PRN PRN Reason: Keep Vein Open Last Admin: 02/09/21 07:46 Dose: 10 ml Documented by: FAUZIA Sodium Chloride (Sodium Chloride 0.9% 2.5 Ml Syringe) 2.5 ml FLUSH ASDIRECTED PRN PRN Reason: Keep Vein Open Last Admin: 02/09/21 07:45 Dose: 2.5 ml Documented by: FAUZIA Labs: Laboratory Tests 02/09/21 02/09/21 02/09/21 Range/Units 03:30 03:30 03:30 WBC 33.45 H (4.0-11.0) K/uL RBC 1.31 L (4.50-5.90) M/uL Hgb 2.9 L* (13.0-17.0) g/dL Hct 10.2 L (38.0-50.0) % MCV 77.9 L (80.0-98.0) fL MCH 22.1 L (27.0-32.0) pg MCHC 28.4 L (31.0-37.0) g/dL RDW Std Deviation 55.4 (28.0-62.0) fl RDW Coeff of Camryn 20 H (11.0-15.0) % Plt Count 475 H (150-400) K/uL MPV 8.30 (7.40-12.00) fL Add Manual Diff YES Neutrophils % (Manual) 83 H (48.0-80.0) % Band Neutrophils % 7 % Lymphocytes % (Manual) 2 L (16.0-40.0) % Monocytes % (Manual) 6 (0.0-15.0) % Eosinophils % (Manual) 2 (0.0-7.0) % Nucleated RBC % 0.5 /100WBC Absolute Seg Neuts 27.8 H (1.4-5.7) Band Neutrophils # 2.3 Lymphocytes # (Manual) 0.7 (0.6-2.4) Monocytes # (Manual) 2.0 H (0.0-0.8) Eosinophils # (Manual) 0.7 (0.0-0.7) Nucleated RBCs # 0 K/uL INR APTT 23.0 (18.6-31.3) SEC Sodium 132 L (136-148) mmol/L Potassium 4.0 (3.5-5.1) mmol/L Chloride 100 (98-107) mmol/L Carbon Dioxide 20.3 L (21.0-32.0) mmol/L BUN 41 H (7.0-18.0) mg/dL Creatinine 1.5 H (0.8-1.3) mg/dL Est Cr Clr Drug Dosing TNP Estimated GFR (MDRD) 46.4 ml/min Glucose 166 H (74-106) mg/dL Calcium 7.8 L (8.5-10.1) mg/dL Magnesium 1.5 L (1.8-2.4) mg/dL Total Bilirubin 0.2 (0.2-1.0) mg/dL AST 17 (15-37) IU/L ALT 13 L (14-63) IU/L Alkaline Phosphatase 79 (46-116) U/L Troponin I < 0.050 (0.000-0.056) ng/mL Total Protein 6.0 L (6.4-8.2) g/dL Albumin 1.6 L (3.4-5.0) g/dL Globulin 4.4 H (2.6-4.0) g/dL Albumin/Globulin Ratio 0.4 L (0.9-1.6) TSH, Ultra Sensitive 3.75 H (0.36-3.74) uIU/mL Influenza Type A RNA (NEGATIVE) Influenza Type B RNA (NEGATIVE) SARS-CoV-2 RNA (BERENICE) (NEGATIVE) Blood Type Antibody Screen Crossmatch 02/09/21 02/09/21 02/09/21 Range/Units 03:30 03:42 03:50 WBC (4.0-11.0) K/uL RBC (4.50-5.90) M/uL Hgb (13.0-17.0) g/dL Hct (38.0-50.0) % MCV (80.0-98.0) fL MCH (27.0-32.0) pg MCHC (31.0-37.0) g/dL RDW Std Deviation (28.0-62.0) fl RDW Coeff of Camryn (11.0-15.0) % Plt Count (150-400) K/uL MPV (7.40-12.00) fL Add Manual Diff Neutrophils % (Manual) (48.0-80.0) % Band Neutrophils % % Lymphocytes % (Manual) (16.0-40.0) % Monocytes % (Manual) (0.0-15.0) % Eosinophils % (Manual) (0.0-7.0) % Nucleated RBC % /100WBC Absolute Seg Neuts (1.4-5.7) Band Neutrophils # Lymphocytes # (Manual) (0.6-2.4) Monocytes # (Manual) (0.0-0.8) Eosinophils # (Manual) (0.0-0.7) Nucleated RBCs # K/uL INR 1.06 APTT (18.6-31.3) SEC Sodium (136-148) mmol/L Potassium (3.5-5.1) mmol/L Chloride (98-107) mmol/L Carbon Dioxide (21.0-32.0) mmol/L BUN (7.0-18.0) mg/dL Creatinine (0.8-1.3) mg/dL Est Cr Clr Drug Dosing Estimated GFR (MDRD) ml/min Glucose (74-106) mg/dL Calcium (8.5-10.1) mg/dL Magnesium (1.8-2.4) mg/dL Total Bilirubin (0.2-1.0) mg/dL AST (15-37) IU/L ALT (14-63) IU/L Alkaline Phosphatase (46-116) U/L Troponin I (0.000-0.056) ng/mL Total Protein (6.4-8.2) g/dL Albumin (3.4-5.0) g/dL Globulin (2.6-4.0) g/dL Albumin/Globulin Ratio (0.9-1.6) TSH, Ultra Sensitive (0.36-3.74) uIU/mL Influenza Type A RNA NEGATIVE (NEGATIVE) Influenza Type B RNA NEGATIVE (NEGATIVE) SARS-CoV-2 RNA (BERENICE) NEGATIVE (NEGATIVE) Blood Type O POSITIVE Antibody Screen NEGATIVE Crossmatch See Detail Meds: Medications Generic Name Dose Route Start Last Admin Trade Name Emir PRN Reason Stop Dose Admin Sodium Chloride 10 ml 02/09/21 03:31 02/09/21 07:46 Sodium Chloride 0.9% 10 Ml Syringe FLUSH 10 ml ASDIRECTED PRN Administration Keep Vein Open Sodium Chloride 2.5 ml 02/09/21 03:31 02/09/21 07:45 Sodium Chloride 0.9% 2.5 Ml Syringe FLUSH 2.5 ml ASDIRECTED PRN Administration Keep Vein Open Discontinued Medications Generic Name Dose Route Start Last Admin Trade Name Emir PRN Reason Stop Dose Admin Hydromorphone HCl 1 mg 02/09/21 04:59 02/09/21 05:24 Hydromorphone 2 Mg/Ml Syringe IVPUSH 02/09/21 05:00 1 mg ONETIME ONE Administration Hydromorphone HCl 1 mg 02/09/21 07:09 02/09/21 07:40 Hydromorphone 1 Mg/Ml Syringe IVPUSH 02/09/21 07:10 1 mg ONETIME ONE Administration Hydromorphone HCl 1 mg 02/09/21 08:59 02/09/21 09:10 Hydromorphone 1 Mg/Ml Syringe IVPUSH 02/09/21 09:00 1 mg ONETIME ONE Administration Sodium Chloride 1,000 mls @ 500 mls/hr 02/09/21 04:09 02/09/21 04:18 Normal Saline IV 02/09/21 06:08 500 mls/hr .BOLUS ONE Administration Ondansetron HCl 4 mg 02/09/21 04:59 02/09/21 05:25 Ondansetron 4 Mg/2 Ml Sdv IVPUSH 02/09/21 05:00 4 mg ONETIME ONE Administration Pantoprazole Sodium 40 mg 02/09/21 04:59 02/09/21 05:25 Pantoprazole 40 Mg/10 Ml Syringe IVPUSH 02/09/21 05:00 40 mg NOW ONE Administration - Re-Assessments/Exams Free Text/Narrative Re-Assessment/Exam: 02/09/21 07:51 Patient was signed out to me from previous provider. Patient has a low hemoglobin on arrival patient was given 2 units of blood I ordered a unit FFP. My colleague called multiple hospitals in [place] looking for transfer. I called [facility] they do not have any beds available but to call back in afternoon I also called [facility] who is on diversion I called [facility] who does not have a bed at this moment but told me to call back in afternoon as he may have some discharges. We will continue to make calls at this time there are no beds [place] or nearby [facility] to transfer patient. 02/09/21 09:17 We also call [facility] do not have any beds available today states that they are holding 12 in the ED and will likely not have any beds available today we will continue to call to look for placement for patient. 02/09/21 09:44 We have also called [facility] and also [facility] admitted and have bed either we have now called for [facility] state we will continue to call and look for transfer for. 02/09/21 09:58 [facility] by [facility] Arias in the ER. Departure - Departure Time of Disposition: 09:59 - Discharge Information *PRESCRIPTION DRUG MONITORING PROGRAM REVIEWED*: Not Applicable *COPY OF PRESCRIPTION DRUG MONITORING REPORT IN PATIENT JOSE L: Not Applicable Sepsis Event Note (ED) - Focused Exam Vital Signs: Vital Signs Temp Pulse Resp BP Pulse Ox 02/09/21 09:30 98.8 F 101 H 16 117/63 97 02/09/21 09:15 99.3 F 96 16 119/64 97 02/09/21 08:25 99.1 F 98 16 112/64 95 02/09/21 07:56 99.3 F 96 16 121/65 99 02/09/21 07:41 99.3 F 99 16 108/59 L 97 02/09/21 05:37 112 H 20 112/52 L 95 02/09/21 04:55 101 H 18 101/53 L 100 02/09/21 03:34 99.7 F 117 H 20 126/55 L 97 - My Orders Last 24 Hours: My Active Orders 02/09/21 03:50 FRESH FROZEN PLASMA [BBK] Stat 02/09/21 06:01 Transfuse Fresh Frozen Plasma [COMM] Stat 02/09/21 06:02 Verify Patient Consent Obtain [RC] ASDIRECTED - Assessment/Plan Last 24 Hours: My Active Orders 02/09/21 03:50 FRESH FROZEN PLASMA [BBK] Stat 02/09/21 06:01 Transfuse Fresh Frozen Plasma [COMM] Stat 02/09/21 06:02 Verify Patient Consent Obtain [RC] ASDIRECTED
[2021-02-09] MEDS ORDERED: Sodium Chloride 0.9% 1,000 ML IV ONE (04:09)
[2021-02-09 04:20] LABS: BLOOD UREA NITROGEN,BUN 41 mg/dL (7.0-18.0); CARBON DIOXIDE,CO2 20.3 mmol/L (21.0-32.0); CHLORIDE,CL 100 mmol/L (98-107); GLUCOSE RANDOM 166 mg/dL (74-106); SODIUM,NA 132 mmol/L (136-148)
[2021-02-09 04:45] LABS: CORONAVIRUS COVID-19 NAA NEGATIVE (NEGATIVE); INFLUENZA A NAA NEGATIVE (NEGATIVE); INFLUENZA B NAA NEGATIVE (NEGATIVE)
--- NOTE | 2021-02-09 04:55 | CR ---
INDICATION: Weakness, dyspnea TECHNIQUE: Portable semiupright AP view of the chest COMPARISON: AP chest 01/03/2021 FINDINGS/IMPRESSION: New right lung base opacity, suspicious for infiltrate. The left lung is clear. Stable enlargement of the cardiac silhouette. No appreciable pleural effusion. No pneumothorax. Dictated by Reese Miles MD @ 02/09/2021 4:53:57 AM (Electronically Signed)
[2021-02-09] MEDS ORDERED: Pantoprazole 40 MG/10 ML Syringe IVPUSH ONE (04:59)
[2021-02-09] MEDS ORDERED: HYDROmorphone 2 MG/ML Syringe IVPUSH ONE (04:59)
[2021-02-09] MEDS ORDERED: Ondansetron 4 MG/2 ML SDV IVPUSH ONE (04:59)
[2021-02-09] MEDS ORDERED: HYDROmorphone 1 MG/ML Syringe IVPUSH ONE ×3 (07:09→10:48)
== END 2021-02-09 11:10 ==
LOC: MW.ED 03:27
DX: C16.9 Malignant neoplasm of stomach, unspecified (principal); D50.0 Iron deficiency anemia secondary to blood loss (chronic); R00.0 Tachycardia, unspecified; N40.1 Benign prostatic hyperplasia with lower urinary tract symptoms; R33.8 Other retention of urine; Z79.899 Other long term (current) drug therapy; Z20.822 Contact with and (suspected) exposure to COVID-19
CPT/HCPCS: 0240U; 36415; 36430; 71045; 80053; 83735; 84443; 84484; 85025; 85610; 85730; 86850; 86900; 86901; 86920; 86921; 86922; 93005; 96374; 96375; 96376; 99285; C9113; J1170; J2405; J7030; P9016; P9017

== ENCOUNTER 2021-02-21 11:55 | Emergency (ER) | payer MEDICARE ==
[2021-02-21] MEDS ORDERED: Sodium Chloride 0.9% 1,000 ML IV ONE ×2 (12:14→13:31)
[2021-02-21] MEDS ORDERED: Sodium Chloride 0.9% 2.5 ML Syringe FLUSH PRN (12:14)
[2021-02-21] MEDS ORDERED: Piperacillin/Tazobactam 4.5 GM in Sodium Chloride 0.9% 100 ML IV ONE (12:14)
[2021-02-21] MEDS ORDERED: Sodium Chloride 0.9% 10 ML Syringe FLUSH PRN (12:14)
[2021-02-21] MEDS ORDERED: Pantoprazole 40 MG/10 ML Syringe IVPUSH ONE (12:16)
[2021-02-21 12:57] LABS: BLOOD UREA NITROGEN,BUN 37 mg/dL (7.0-18.0); CARBON DIOXIDE,CO2 17.1 mmol/L (21.0-32.0); CHLORIDE,CL 99 mmol/L (98-107); GLUCOSE RANDOM 272 mg/dL (74-106); POTASSIUM,K 3.8 mmol/L (3.5-5.1); SODIUM,NA 131 mmol/L (136-148)
[2021-02-21 13:09] LABS: LIPASE 1641 U/L (73-393)
[2021-02-21] MEDS ORDERED: Sodium Chloride 0.9% 750 ML IV ONE (13:23)
[2021-02-21] MEDS: Morphine 4 MG/ML VIAL IVPUSH ONE ×2 (13:36→18:10)
--- NOTE | 2021-02-21 13:55 | EDM.PDOC ---
ED HPI GENERAL MEDICAL PROBLEM - General Chief Complaint: Respiratory Problem Stated Complaint: SOB Time Seen by Provider: 02/21/21 12:02 - History of Present Illness INITIAL COMMENTS - FREE TEXT/NARRATIVE: 70-year-old male presents to the emergency department 1 day of generalized weakness. Patient had previously just over the last month been diagnosed with a gastric cancer. There was a previous GI bleed that required blood transfusion. Patient is now with recurrence of weakness and is having black diarrhea. Patient denies any fever or shortness of breath cough or productive sputum. No chest pain. No exacerbating alleviating factors of these moderate symptoms. Patient is complaining of significant abdominal pain Abdominal Pain Score (Numeric/FACES): 9 - Related Data Allergies Allergy/AdvReac Type Severity Reaction Status Date / Time No Known Allergies Allergy Verified 02/21/21 12:02 Home Meds: Home Meds Codeine Sulfate 30 mg PO QID 02/19/19 [History] Tamsulosin HCl [Flomax] 1 tab PO DAILY 02/19/19 [History] diazePAM [Valium] 5 mg PO DAILY 02/19/19 [History] Ferrous Sulfate [Iron] 325 mg PO BID #60 tablet 01/05/21 [Rx] HYDROmorphone HCl [Hydromorphone HCl] 4 mg PO Q4H PRN 02/09/21 [History] Past Medical History Respiratory History: Reports: Other (See Below) Other Respiratory History: lung mass Gastrointestinal History: Reports: Inflammatory Bowel Disease, Other (See Below) Other Gastrointestinal History: stage 4 ca Genitourinary History: Reports: BPH, Prostate Disorder, Retention, Urinary Psychiatric History: Reports: Anxiety Hematologic History: Reports: B12 Deficiency, Blood Transfusion(s) Oncologic (Cancer) History: Reports: Other (See Below) 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 - Infectious Disease History Infectious Disease History: Reports: Chicken Pox - Past Surgical History HEENT Surgical History: Reports: Cataract Surgery, Tonsillectomy GI Surgical History: Reports: Colonoscopy, EGD, Small Bowel, Other (See Below) Other GI Surgeries/Procedures: Crohns Disease Social & Family History - Family History Family Medical History: No Pertinent Family History - Tobacco Use Tobacco Use Status *Q: Never Tobacco User Second Hand Smoke Exposure: No - Caffeine Use Caffeine Use: Reports: Coffee Caffeine Use Comment: Unable to assess, patient sleepy - Recreational Drug Use Recreational Drug Use: No ED ROS GENERAL - Review of Systems Review Of Systems: Comprehensive ROS is negative, except as noted in HPI. ED EXAM, GENERAL - Physical Exam Exam: See Below Free Text/Narrative:: CONSTITUTIONAL: Moderate distress s SKIN: Warm, dry, and intact without rash HENT: Normocephalic, atraumatic, PULMONARY: clear to ausculation bilaterally. No rales, rhonchi, wheezing CARDIOVASCULAR: regular rate, No murmur, rubs, or gallops GASTROINTESTINAL: Diffuse mild tenderness. No guarding rebound or rigidity. Black strongly guaiac positive stools NEUROLOGIC: normal speech, II-XII intact. light touch/5/5 power equal and symmetric in upper and lower extremities without deficit MUSCULOSKELETAL: no gross deformities, atraumatic PSYCHIATRIC: normal mood and affect #1 Interpretation Time: 17:37 EKG Interpretation Comments: 120, sinus tachycardia, nonspecific ST/T findings. QTc interval prolonged at 641 Course - Vital Signs Text/Narrative:: Differential diagnosis: GI bleed, sepsis, pancreatitis, PE, dysrhythmia, pericardial tamponade, urosepsis, other Patient presents to the emergency department as outlined above. Patient found to have a GI bleed and was given fluid and blood products in the emergency department. Patient also found to be septic. Potential sources of infection include a necrotic abscess malignancy, ascending cholangitis, pneumonia, other Patient responded to IV fluids and blood products and antibiotics in the emergency department. Patient received 30 cc/kg of IV fluid in the setting of sepsis. Patient reevaluated multiple times throughout the ED course. All in [facility] were contacted and were without beds or availability. We do not have GI at our hospital. I spoke to Dr. Miller ICU at [facility] that thought perhaps the patient will respond to treatments of fluid blood and antibiotics and may not need the ICU. As such he suggested the ER Dr. Sneed called. Dr. Sneed graciously excepted the patient but wanted me to speak to GI to ensure that there would be able to take care of the patient in their facility. I spoke to Dr. Mars, guide to review the case. He thought that the transfer was appropriate. He states that they have temporizing measures including spray that can be done to temporize the bleeding via endoscopy. The plan will be to give him fluid and blood and antibiotics and temporize the bleeding. They can then do MRCP to see if any of the lesion could potentially be stentable. He states that one of his partners does do CBD stents and they also have IR that could do a percutaneous drainage if necessary. Irrespective, this patient is a complicated patient with advanced disease and a detailed discussion with how far treatments want to be taken can discuss with the family after the patient is stabilized. She will be transferred for higher level of care I was able to get a hospital in [facility] that has GI and IR 1:45 PM. Patient blood pressure is improved after IV fluids from 90 systolic up to 110. Patient continues to look well and is mentating without difficulty. Stools were guaiac positive. Critical care: I spent 90 minutes of critical care time with this patient not including reportable procedures. There was an acute impairment of an organ system with a high probability of imminent or life threatening deterioration in the patient`s condition. Interventions and changes required in the course of therapy are located in the chart. Time involved was spent in direct patient care, reviewing ancillary data, old records, consulting with decision makers, EMS, other doctors, giving orders and documenting. Last Recorded V/S: Last Vital Signs Temp 36.4 C 02/21/21 12:03 Pulse 101 H 02/21/21 14:23 Resp 14 02/21/21 14:23 BP 105/45 L 02/21/21 14:23 Pulse Ox 98 02/21/21 14:23 - Orders/Labs/Meds Orders: Active Orders 24 hr Category Date Time Status Cardiac Monitoring [RC] . DIRECTED Care 02/21/21 12:14 Active Bishop Catheter Insertion [Insert Urinary Catheter] [OM. Care 02/21/21 16:00 Ordered PC] Q24H Pulse Oximetry [RC] ASDIRECTED Care 02/21/21 12:14 Active Urinary Catheter Assessment [RC] ASDIRECTED Care 02/21/21 16:00 Active Verify Patient Consent Obtain [RC] ASDIRECTED Care 02/21/21 12:18 Active CULTURE BLOOD [BC] Stat Lab 02/21/21 12:12 Received CULTURE BLOOD [BC] Stat Lab 02/21/21 12:33 Received LACTIC ACID [CHEM] Routine Lab 02/21/21 17:00 Ordered RED BLOOD CELLS LP [BBK] Stat Lab 02/21/21 12:33 Results TYPE AND SCREEN [BBK] Stat Lab 02/21/21 12:33 Results Sodium Chloride 0.9% [Saline Flush] Med 02/21/21 12:14 Active 10 ml FLUSH ASDIRECTED PRN Sodium Chloride 0.9% [Saline Flush] Med 02/21/21 12:14 Active 2.5 ml FLUSH ASDIRECTED PRN Vancomycin 1 gm Med 02/21/21 14:15 Active Sodium Chloride 0.9% [Normal Saline AdvBag] 250 ml IV ONETIME Blood Culture x2 Reflex Set [OM.PC] Stat Ot 02/21/21 12:15 Ordered Saline Lock Insert [OM.PC] Stat Ot 02/21/21 12:14 Ordered Transfuse Red Blood Cells [COMM] Stat Ot 02/21/21 12:17 Ordered Transfuse Red Blood Cells [COMM] Stat Ot 02/21/21 14:23 Ordered Transfuse Red Blood Cells [COMM] Stat Ot 02/21/21 15:03 Ordered Medication Orders Vancomycin HCl 1 gm/ Sodium (Chloride) 250 mls @ 250 mls/hr IV ONETIME AIMEE Last Admin: 02/21/21 15:00 Dose: 250 mls/hr Documented by: PETRKAT Sodium Chloride (Sodium Chloride 0.9% 10 Ml Syringe) 10 ml FLUSH ASDIRECTED PRN PRN Reason: Keep Vein Open Last Admin: 02/21/21 12:36 Dose: 10 ml Documented by: PETRKAT Sodium Chloride (Sodium Chloride 0.9% 2.5 Ml Syringe) 2.5 ml FLUSH ASDIRECTED PRN PRN Reason: Keep Vein Open Last Admin: 02/21/21 12:35 Dose: 2.5 ml Documented by: MARK Labs: Laboratory Tests 02/21/21 02/21/21 02/21/21 Range/Units 12:12 12:12 12:12 WBC 36.26 H (4.0-11.0) K/uL RBC 1.30 L (4.50-5.90) M/uL Hgb 3.7 L* (13.0-17.0) g/dL Hct 12.4 L (38.0-50.0) % MCV 95.4 (80.0-98.0) fL MCH 28.5 (27.0-32.0) pg MCHC 29.8 L (31.0-37.0) g/dL RDW Std Deviation 60.4 (28.0-62.0) fl RDW Coeff of Camryn 24 H (11.0-15.0) % Plt Count 506 H (150-400) K/uL MPV 8.70 (7.40-12.00) fL Add Manual Diff YES Neutrophils % (Manual) 89 H (48.0-80.0) % Band Neutrophils % 5 % Lymphocytes % (Manual) 3 L (16.0-40.0) % Monocytes % (Manual) 2 (0.0-15.0) % Eosinophils % (Manual) 1 (0.0-7.0) % Nucleated RBC % 0.6 /100WBC Absolute Seg Neuts 32.3 H (1.4-5.7) Band Neutrophils # 1.8 Lymphocytes # (Manual) 1.1 (0.6-2.4) Monocytes # (Manual) 0.7 (0.0-0.8) Eosinophils # (Manual) 0.4 (0.0-0.7) Nucleated RBCs # 0 K/uL INR 1.07 APTT (18.6-31.3) SEC Sodium 131 L (136-148) mmol/L Potassium 3.8 (3.5-5.1) mmol/L Chloride 99 (98-107) mmol/L Carbon Dioxide 17.1 L (21.0-32.0) mmol/L BUN 37 H (7.0-18.0) mg/dL Creatinine 1.5 H (0.8-1.3) mg/dL Est Cr Clr Drug Dosing 41.75 mL/min Estimated GFR (MDRD) 46.4 ml/min Glucose 272 H (74-106) mg/dL Lactic Acid (0.4-2.0) mmol/L Calcium 8.1 L (8.5-10.1) mg/dL Total Bilirubin 3.4 H (0.2-1.0) mg/dL AST 61 H (15-37) IU/L ALT 94 H (14-63) IU/L Alkaline Phosphatase 493 H (46-116) U/L Troponin I < 0.050 (0.000-0.056) ng/mL Total Protein 5.4 L (6.4-8.2) g/dL Albumin 1.6 L (3.4-5.0) g/dL Globulin 3.8 (2.6-4.0) g/dL Albumin/Globulin Ratio 0.4 L (0.9-1.6) Lipase 1641 H (73-393) U/L Urine Color Urine Appearance Urine pH (5.0-8.0) Ur Specific [place] (1.001-1.035) Urine Protein (NEGATIVE) mg/dL Urine Glucose (UA) (NEGATIVE) mg/dL Urine Ketones (NEGATIVE) mg/dL Urine Occult Blood (NEGATIVE) Urine Nitrite (NEGATIVE) Urine Bilirubin (NEGATIVE) Urine Urobilinogen (<2.0) EU/dL Ur Leukocyte Esterase (NEGATIVE) SARS-CoV-2 RNA (BERENICE) (NEGATIVE) Blood Type Antibody Screen Crossmatch 02/21/21 02/21/21 02/21/21 Range/Units 12:12 12:12 12:26 WBC (4.0-11.0) K/uL RBC (4.50-5.90) M/uL Hgb (13.0-17.0) g/dL Hct (38.0-50.0) % MCV (80.0-98.0) fL MCH (27.0-32.0) pg MCHC (31.0-37.0) g/dL RDW Std Deviation (28.0-62.0) fl RDW Coeff of Camryn (11.0-15.0) % Plt Count (150-400) K/uL MPV (7.40-12.00) fL Add Manual Diff Neutrophils % (Manual) (48.0-80.0) % Band Neutrophils % % Lymphocytes % (Manual) (16.0-40.0) % Monocytes % (Manual) (0.0-15.0) % Eosinophils % (Manual) (0.0-7.0) % Nucleated RBC % /100WBC Absolute Seg Neuts (1.4-5.7) Band Neutrophils # Lymphocytes # (Manual) (0.6-2.4) Monocytes # (Manual) (0.0-0.8) Eosinophils # (Manual) (0.0-0.7) Nucleated RBCs # K/uL INR APTT 21.1 (18.6-31.3) SEC Sodium (136-148) mmol/L Potassium (3.5-5.1) mmol/L Chloride (98-107) mmol/L Carbon Dioxide (21.0-32.0) mmol/L BUN (7.0-18.0) mg/dL Creatinine (0.8-1.3) mg/dL Est Cr Clr Drug Dosing mL/min Estimated GFR (MDRD) ml/min Glucose (74-106) mg/dL Lactic Acid 4.8 H* (0.4-2.0) mmol/L Calcium (8.5-10.1) mg/dL Total Bilirubin (0.2-1.0) mg/dL AST (15-37) IU/L ALT (14-63) IU/L Alkaline Phosphatase (46-116) U/L Troponin I (0.000-0.056) ng/mL Total Protein (6.4-8.2) g/dL Albumin (3.4-5.0) g/dL Globulin (2.6-4.0) g/dL Albumin/Globulin Ratio (0.9-1.6) Lipase (73-393) U/L Urine Color Urine Appearance Urine pH (5.0-8.0) Ur Specific [place] (1.001-1.035) Urine Protein (NEGATIVE) mg/dL Urine Glucose (UA) (NEGATIVE) mg/dL Urine Ketones (NEGATIVE) mg/dL Urine Occult Blood (NEGATIVE) Urine Nitrite (NEGATIVE) Urine Bilirubin (NEGATIVE) Urine Urobilinogen (<2.0) EU/dL Ur Leukocyte Esterase (NEGATIVE) SARS-CoV-2 RNA (BERENICE) NEGATIVE (NEGATIVE) Blood Type Antibody Screen Crossmatch 02/21/21 02/21/21 Range/Units 12:33 15:38 WBC (4.0-11.0) K/uL RBC (4.50-5.90) M/uL Hgb (13.0-17.0) g/dL Hct (38.0-50.0) % MCV (80.0-98.0) fL MCH (27.0-32.0) pg MCHC (31.0-37.0) g/dL RDW Std Deviation (28.0-62.0) fl RDW Coeff of Camryn (11.0-15.0) % Plt Count (150-400) K/uL MPV (7.40-12.00) fL Add Manual Diff Neutrophils % (Manual) (48.0-80.0) % Band Neutrophils % % Lymphocytes % (Manual) (16.0-40.0) % Monocytes % (Manual) (0.0-15.0) % Eosinophils % (Manual) (0.0-7.0) % Nucleated RBC % /100WBC Absolute Seg Neuts (1.4-5.7) Band Neutrophils # Lymphocytes # (Manual) (0.6-2.4) Monocytes # (Manual) (0.0-0.8) Eosinophils # (Manual) (0.0-0.7) Nucleated RBCs # K/uL INR APTT (18.6-31.3) SEC Sodium (136-148) mmol/L Potassium (3.5-5.1) mmol/L Chloride (98-107) mmol/L Carbon Dioxide (21.0-32.0) mmol/L BUN (7.0-18.0) mg/dL Creatinine (0.8-1.3) mg/dL Est Cr Clr Drug Dosing mL/min Estimated GFR (MDRD) ml/min Glucose (74-106) mg/dL Lactic Acid (0.4-2.0) mmol/L Calcium (8.5-10.1) mg/dL Total Bilirubin (0.2-1.0) mg/dL AST (15-37) IU/L ALT (14-63) IU/L Alkaline Phosphatase (46-116) U/L Troponin I (0.000-0.056) ng/mL Total Protein (6.4-8.2) g/dL Albumin (3.4-5.0) g/dL Globulin (2.6-4.0) g/dL Albumin/Globulin Ratio (0.9-1.6) Lipase (73-393) U/L Urine Color YELLOW Urine Appearance CLEAR Urine pH 5.5 (5.0-8.0) Ur Specific [place] 1.020 (1.001-1.035) Urine Protein NEGATIVE (NEGATIVE) mg/dL Urine Glucose (UA) NEGATIVE (NEGATIVE) mg/dL Urine Ketones NEGATIVE (NEGATIVE) mg/dL Urine Occult Blood NEGATIVE (NEGATIVE) Urine Nitrite NEGATIVE (NEGATIVE) Urine Bilirubin SMALL H (NEGATIVE) Urine Urobilinogen 0.2 (<2.0) EU/dL Ur Leukocyte Esterase NEGATIVE (NEGATIVE) SARS-CoV-2 RNA (BERENICE) (NEGATIVE) Blood Type O POSITIVE Antibody Screen NEGATIVE Crossmatch See Detail Meds: Medications Generic Name Dose Route Start Last Admin Trade Name Emir PRN Reason Stop Dose Admin Vancomycin HCl 1 gm/ Sodium 250 mls @ 250 mls/hr 02/21/21 14:15 02/21/21 15:00 Chloride IV 250 mls/hr ONETIME AIMEE Administration Sodium Chloride 10 ml 02/21/21 12:14 02/21/21 12:36 Sodium Chloride 0.9% 10 Ml Syringe FLUSH 10 ml ASDIRECTED PRN Administration Keep Vein Open Sodium Chloride 2.5 ml 02/21/21 12:14 02/21/21 12:35 Sodium Chloride 0.9% 2.5 Ml Syringe FLUSH 2.5 ml ASDIRECTED PRN Administration Keep Vein Open Discontinued Medications Generic Name Dose Route Start Last Admin Trade Name Emir PRN Reason Stop Dose Admin Sodium Chloride 1,000 mls @ 999 mls/hr 02/21/21 12:14 02/21/21 12:34 Normal Saline IV 02/21/21 13:14 999 mls/hr .BOLUS ONE Administration Piperacillin Sod/Tazobactam 100 mls @ 100 mls/hr 02/21/21 12:14 02/21/21 12:35 Sod 4.5 gm/ Sodium Chloride IV 02/21/21 13:13 100 mls/hr ONETIME ONE Administration Sodium Chloride 750 mls @ 999 mls/hr 02/21/21 13:23 02/21/21 13:41 Normal Saline IV 02/21/21 14:08 Not Given .BOLUS ONE Sodium Chloride 1,000 mls @ 999 mls/hr 02/21/21 13:31 02/21/21 13:41 Normal Saline IV 02/21/21 14:31 999 mls/hr .Bolus ONE Administration Iopamidol 80 ml 02/21/21 15:05 02/21/21 15:06 Iopamidol 755 Mg/Ml 500 Ml Multipack Bottle IVPUSH 02/21/21 15:06 80 ml ONETIME STA Administration Morphine Sulfate 4 mg 02/21/21 13:22 02/21/21 13:36 Morphine 4 Mg/Ml Vial IVPUSH 02/21/21 13:23 4 mg ONETIME ONE Administration Pantoprazole Sodium 80 mg 02/21/21 12:16 02/21/21 12:38 Pantoprazole 40 Mg/10 Ml Syringe IVPUSH 02/21/21 12:17 80 mg ONETIME ONE Administration Vancomycin HCl 1 dose 02/21/21 13:23 02/21/21 14:41 Pharmacy To Dose - Vancomycin .XX 02/21/21 13:24 Not Given ONETIME ONE Departure - Departure Time of Disposition: 17:32 Disposition: DC/Tfer to Medicaid [facility] 65 Condition: Poor Clinical Impression: Pancreatitis, Biliary obstruction, Pericardial effusion without cardiac tamponade, QT prolongation, Hydronephrosis Sepsis Qualifiers: Sepsis acute organ dysfunction status: without acute organ dysfunction GI bleed Qualifiers: GI bleed type/associated pathology: unspecified gastrointestinal hemorrhage type Qualified Code(s): K92.2 - Gastrointestinal hemorrhage, unspecified - Discharge Information Referrals: Saurabh Tapia MD [Primary Care Provider] - Forms: ED Department Discharge Sepsis Event Note (ED) - Evaluation Sepsis Screening Result: Possible Sepsis Risk - Focused Exam Vital Signs: Vital Signs Temp Pulse Resp BP Pulse Ox 02/21/21 14:23 101 H 14 105/45 L 98 02/21/21 14:08 104 H 106/42 L 99 02/21/21 13:38 100/38 L 99 02/21/21 13:08 96 110/52 L 100 02/21/21 12:53 102/49 L 98 02/21/21 12:38 110 H 92/40 L 100 02/21/21 12:28 101 H 94/41 L 98 02/21/21 12:23 110 H 101/44 L 99 02/21/21 12:17 111 H 102/42 L 98 02/21/21 12:03 36.4 C 117 H 22 H 99/49 L 97 - My Orders Last 24 Hours: My Active Orders 02/21/21 12:12 CULTURE BLOOD [BC] Stat 02/21/21 12:14 Cardiac Monitoring [RC] . DIRECTED Pulse Oximetry [RC] ASDIRECTED Sodium Chloride 0.9% [Saline Flush] 10 ml FLUSH ASDIRECTED PRN Sodium Chloride 0.9% [Saline Flush] 2.5 ml FLUSH ASDIRECTED PRN Saline Lock Insert [OM.PC] Stat 02/21/21 12:15 Blood Culture x2 Reflex Set [OM.PC] Stat 02/21/21 12:17 Transfuse Red Blood Cells [COMM] Stat 02/21/21 12:18 Verify Patient Consent Obtain [RC] ASDIRECTED 02/21/21 12:33 CULTURE BLOOD [BC] Stat RED BLOOD CELLS LP [BBK] Stat TYPE AND SCREEN [BBK] Stat 02/21/21 14:15 Vancomycin 1 gm Sodium Chloride 0.9% [Normal Saline AdvBag] 250 ml IV ONETIME 02/21/21 14:23 Transfuse Red Blood Cells [COMM] Stat 02/21/21 15:03 Transfuse Red Blood Cells [COMM] Stat 02/21/21 16:00 Bishop Catheter Insertion [Insert Urinary Catheter] [OM.PC] Q24H Urinary Catheter Assessment [RC] ASDIRECTED 02/21/21 17:00 LACTIC ACID [CHEM] Routine - Assessment/Plan Last 24 Hours: My Active Orders 02/21/21 12:12 CULTURE BLOOD [BC] Stat 02/21/21 12:14 Cardiac Monitoring [RC] . DIRECTED Pulse Oximetry [RC] ASDIRECTED Sodium Chloride 0.9% [Saline Flush] 10 ml FLUSH ASDIRECTED PRN Sodium Chloride 0.9% [Saline Flush] 2.5 ml FLUSH ASDIRECTED PRN Saline Lock Insert [OM.PC] Stat 02/21/21 12:15 Blood Culture x2 Reflex Set [OM.PC] Stat 02/21/21 12:17 Transfuse Red Blood Cells [COMM] Stat 02/21/21 12:18 Verify Patient Consent Obtain [RC] ASDIRECTED 02/21/21 12:33 CULTURE BLOOD [BC] Stat RED BLOOD CELLS LP [BBK] Stat TYPE AND SCREEN [BBK] Stat 02/21/21 14:15 Vancomycin 1 gm Sodium Chloride 0.9% [Normal Saline AdvBag] 250 ml IV ONETIME 02/21/21 14:23 Transfuse Red Blood Cells [COMM] Stat 02/21/21 15:03 Transfuse Red Blood Cells [COMM] Stat 02/21/21 16:00 Bishop Catheter Insertion [Insert Urinary Catheter] [OM.PC] Q24H Urinary Catheter Assessment [RC] ASDIRECTED 02/21/21 17:00 LACTIC ACID [CHEM] Routine
[2021-02-21] MEDS ORDERED: Iopamidol 755 MG/ML 500 ML Multipack Bottle IVPUSH STA (15:05)
--- NOTE | 2021-02-21 16:10 | CT ---
INDICATION: Dyspnea. Pain. History of gastric cancer. COMPARISON: None TECHNIQUE: CT examination of the chest, abdomen and pelvis was performed following the uneventful intravenous administration of 80 cc of Isovue 370. Thin section axial images were obtained from the thoracic inlet through the pubic symphysis. Oral contrast was not administered. The chest portion of the study was performed as an angiogram. Please note that all CT scans at this facility use dose modulation, iterative reconstruction, and/or weight-based dosing when appropriate to reduce radiation dose to as low as reasonably achievable. FINDINGS: CHEST: The heart size is normal. There is a moderate pericardial effusion which may be malignant. There atherosclerotic vascular and valvular calcifications. Mediastinal lymphadenopathy is identified primarily right hilar, infrahilar, subcarinal and low right paratracheal There is a large right lower lobe mass. This measures 9.2 x 9.4 x 9.7 centimeters and is heterogeneous. This could represent a primary or a solitary large metastatic deposit from the subdiaphragmatic disease described below. There does not appear to be any other mass or nodule elsewhere within the lungs. There is basilar atelectasis. Moderate emphysema. No pleural effusion. There is no evidence of pulmonary embolus ABDOMEN AND PELVIS: LIVER/BILIARY SYSTEM:The liver is mildly enlarged. There is massive intra and extrahepatic biliary ductal dilatation. The gallbladder is distended, probably hydropic and there is cholelithiasis but there is no evidence of choledocholithiasis. There is no gallbladder wall thickening or pericholecystic fluid. Scattered low-density hepatic lesions are identified which are probably largely cysts though there are a couple that are complex and might be metastatic. ADRENALS: Normal KIDNEYS, URETERS and BLADDER:Massive bilateral hydronephrosis and hydroureter. This is symmetric and extends to the bladder probably due to bladder outlet obstruction. The bladder is distended and trabeculated probably due to chronic bladder outlet obstruction. Prostate is enlarged and heterogeneous. There may be either a bladder base tumor or, more likely, median lobe hypertrophy from BPH. SPLEEN:There is a heterogeneous mass in the spleen which is partially calcified. I somewhat favor this is a hemangioma with phleboliths rather than a metastatic deposit. This measures 4 centimeters PANCREAS: There is a large mass centered in the region of the pancreatic head and body. This is probably the primary gastric tumor which likely arose from the antrum extending into the duodenum and invading the head and body. This lesion measures 10.0 x 9.0 by 7.3 centimeters. In greatest oblique length from coronal image 39, this measures 15 centimeters. This has a low-density area measuring about 8 centimeters which is probably either necrotic tumor or an associated abscess. This is likely the cause of the biliary ductal dilatation RETROPERITONEUM and MESENTERY: The mass extends into the retroperitoneum and somewhat compresses the cava. No aneurysm GASTROINTESTINAL SYSTEM: There is no evidence of diverticulitis, colitis, or appendicitis. The small bowel as visualized appears normal.There does not appear to be gastric outlet obstruction based on the lack of distention proximal to the mass. PELVIS: Abnormal prostate and bladder as discussed above. OSSEOUS STRUCTURES and ABDOMINAL WALL: No destructive process of boneno significant abdominal wall defect. OTHER: No free fluid or free air. IMPRESSION: 1. CHEST: There is no evidence of pulmonary embolus. There is a large right lower lobe mass measuring almost 10 centimeters which is either a primary lung neoplasm or a solitary metastasis from the subdiaphragmatic disease. Emphysema. Moderate-sized pericardial effusion without evidence of tamponade. Lymphadenopathy 2. LIVER: Massive intra and extrahepatic biliary ductal dilatation due to the pancreatic region mass described below. Hepatic lesions are mainly cysts though there are probably a few complex lesions that are metastatic. Hydropic gallbladder without wall thickening. Cholelithiasis without evidence of choledocholithiasis 3. PANCREATIC REGION: Large mass measuring up to 10 centimeters in greatest dimension. This is in the region of the antrum, duodenum and pancreatic head and body likely arising from the stomach as per history. This is the cause of the biliary ductal dilatation. This has an 8 centimeter low density area that is either necrotic or infected or both. 4. KIDNEYS: Severe bilateral hydronephrosis and hydroureter. This appears to be due to bladder outlet obstruction. The prostate is abnormal. This could be due to median lobe hypertrophy from BPH or malignancy. 5. Other findings as above 6. Discussed with Dr. Casillas at 4 p.m. on February 21, [address] Please note that all CT scans at this facility use dose modulation, iterative reconstruction, and/or weight-based dosing when appropriate to reduce radiation dose to as low as reasonably achievable. Dictated by Hiram Manrique MD @ 02/21/2021 4:08:28 PM (Electronically Signed)
[2021-02-21] MEDS ORDERED: Morphine 4 MG/ML VIAL IVPUSH ONE (18:06)
[2021-02-21] MEDS ORDERED: Morphine 4 MG/ML VIAL ONE (18:08)
== END 2021-02-21 18:39 ==
LOC: MW.ED 11:55
DX: A41.9 Sepsis, unspecified organism (principal); K52.9 Noninfective gastroenteritis and colitis, unspecified; K85.90 Acute pancreatitis without necrosis or infection, unspecified; K83.1 Obstruction of bile duct; I31.3 Pericardial effusion (noninflammatory); N13.30 Unspecified hydronephrosis; R94.31 Abnormal electrocardiogram [ECG] [EKG]; N40.0 Benign prostatic hyperplasia without lower urinary tract symptoms; Z79.899 Other long term (current) drug therapy; Z20.822 Contact with and (suspected) exposure to COVID-19
CPT/HCPCS: 36415; 36430; 71275; 74177; 80053; 81003; 83605; 83690; 84484; 85025; 85610; 85730; 86850; 86900; 86901; 86920; 86921; 86922; 87040; 93005; 96365; 96367; 96375; 96376; 99285; C9113; J2270; J2543; J3370; J7030; J7050; P9016; Q9967; U0002